=== PATIENT | female | born 1980 | race Caucasian/White ===

== ENCOUNTER 2016-09-13 19:19 | Inpatient (IN) | payer MEDICAID ==
--- NOTE | 2016-09-13 19:43 | EDM.PDOC ---
ED HPI GENERAL MEDICAL PROBLEM - General Chief Complaint: Abdominal Pain Stated Complaint: ABD PAIN Time Seen by Provider: 09/13/16 19:43 Source of Information: Reports: Patient History Limitations: Reports: No Limitations - History of Present Illness INITIAL COMMENTS - FREE TEXT/NARRATIVE: pt ate a salad at [facility] today nd had a carabou coffee. She felt a little unsettled at first and then she developed pain in the rt abdoman. She now has pain in rt upper abdoman and it goes to her shoulder blade. She still does have her GB, Onset: Today Duration: Hour(s): Location: Reports: Abdomen Associated Symptoms: Reports: Nausea/Vomiting abdominal pain Pain Score (Numeric/FACES): 10 - Related Data Allergies Allergy/AdvReac Type Severity Reaction Status Date / Time No Known Allergies Allergy Verified 09/13/16 19:47 Home Meds: Home Meds ALPRAZolam [Alprazolam] 0.5 mg PO TID PRN 09/13/16 [History] Citalopram [Citalopram Hbr] 40 mg PO DAILY 09/13/16 [History] ED ROS GENERAL - Review of Systems Review Of Systems: See Below Constitutional: Reports: No Symptoms HEENT: Reports: No Symptoms Respiratory: Reports: No Symptoms, Other (hurts rt upper abdoman when she takes a deep breath. ) Cardiovascular: Reports: No Symptoms Endocrine: Reports: No Symptoms GI/Abdominal: Reports: Abdominal Pain, Nausea : Reports: Incontinence Musculoskeletal: Reports: No Symptoms Skin: Reports: No Symptoms Neurological: Reports: No Symptoms ED EXAM, GI/ABD - Physical Exam Exam: See Below Text/Narrative:: pt felt well earlier in the day. She was at [facility] and she had the salad bar and a carabou coffee. She seemed a little unsettled at first and she now has pain at a 9 in the rt upper abdoman and some pain in the lower abdoman. She hurts wheb she takes a deep breath and the pain goes to her rt shoulder blade. Exam Limited By: No Limitations General Appearance: Alert, Moderate Distress, Other (pt is rating her pain a 9. ) Ears: Normal External Exam Nose: Normal Inspection Throat/Mouth: Normal Inspection Head: Atraumatic Neck: Normal Inspection Respiratory/Chest: No Respiratory Distress Cardiovascular: Regular Rate, Rhythm GI/Abdominal: Tenderness, Other ( pt is tender in the rt upper abdoman and she has pain in the rt shoulder. She has some pain in the lower abdoman. ) (Female) Exam: Deferred Rectal (Female) Exam: Deferred Back Exam: Normal Inspection Extremities: Normal Inspection Neurological: Alert, Oriented, Normal Cognition Course - Vital Signs Last Recorded V/S: Last Vital Signs Temp 36.9 C 09/13/16 22:10 Pulse 87 09/13/16 22:10 Resp 20 09/13/16 22:10 BP 133/79 09/13/16 22:10 Pulse Ox 99 09/13/16 22:10 - Orders/Labs/Meds Orders: Active Orders 24 hr Category Date Time Status Abdomen Ltd [US] Stat Exams 09/13/16 20:42 Ordered Abdomen Pelvis w Cont [CT] Stat Exams 09/13/16 22:12 Taken Abdomen Series w Chest 1V [CR] Urgent Exams 09/13/16 20:09 Taken Pelvis Non OB Ltd [US] Stat Exams 09/13/16 22:01 Ordered CANCER ANTIGEN,CA 125 [REF] Stat Lab 09/13/16 22:33 Received RED BLOOD CELLS LP [BBK] Stat Lab 09/13/16 23:16 Ordered TYPE AND SCREEN [BBK] Stat Lab 09/13/16 23:16 Ordered Iopamidol [Isovue-300 (61%)] Med 09/13/16 22:30 Active 100 ml IV . DIRECTED Sodium Chloride 0.9% [Normal Saline] 1,000 ml Med 09/13/16 20:15 Active IV ASDIRECTED Sodium Chloride 0.9% [Normal Saline] 1,000 ml Med 09/13/16 22:15 Active IV ASDIRECTED Sodium Chloride 0.9% [Normal Saline] 80 ml Med 09/13/16 22:30 Active IV ASDIRECTED Sodium Chloride 0.9% [Saline Flush] Med 09/13/16 22:18 Active 10 ml FLUSH ASDIRECTED PRN Medication Orders Sodium Chloride (Normal Saline) 1,000 mls @ 999 mls/hr IV ASDIRECTED JULIA Last Admin: 09/13/16 20:22 Dose: 999 mls/hr Sodium Chloride (Normal Saline) 1,000 mls @ 250 mls/hr IV ASDIRECTED JULIA Last Admin: 09/13/16 22:16 Dose: 250 mls/hr Sodium Chloride (Normal Saline) 80 mls @ 3 mls/sec IV ASDIRECTED JULIA Last Admin: 09/13/16 22:36 Dose: 3 mls/sec Iopamidol (Isovue-300 (61%)) 100 ml IV . DIRECTED JULIA Last Admin: 09/13/16 22:36 Dose: 100 ml Sodium Chloride (Saline Flush) 10 ml FLUSH ASDIRECTED PRN PRN Reason: Keep Vein Open Labs: Laboratory Tests 09/13/16 09/13/16 09/13/16 Range/Units 19:39 19:39 19:39 WBC 16.1 H (4.5-11.0) K/uL RBC 3.77 (3.30-5.50) M/uL Hgb 11.7 L (12.0-15.0) g/dL Hct 34.9 L (36.0-48.0) % MCV 93 (80-98) fL MCH 31 (27-31) pg MCHC 34 (32-36) % Plt Count 239 (150-400) K/uL Neut % (Auto) 77 H (36-66) % Lymph % (Auto) 16 L (24-44) % [place] % (Auto) 6 (2-6) % Eos % (Auto) 1 L (2-4) % Baso % (Auto) 0 (0-1) % ESR (0-25) mm/hr Sodium 136 L (140-148) mmol/L Potassium 4.0 (3.6-5.2) mmol/L Chloride 101 (100-108) mmol/L Carbon Dioxide 27 (21-32) mmol/L Anion Gap 12.0 (5.0-14.0) mmol/L BUN 16 (7-18) mg/dL Creatinine 0.8 (0.6-1.0) mg/dL Est Cr Clr Drug Dosing 99.95 mL/min Estimated GFR (MDRD) > 60 (>60) Glucose 147 H (74-106) mg/dL Calcium 8.1 L (8.5-10.1) mg/dL Total Bilirubin 0.3 (0.2-1.0) mg/dL AST 19 (15-37) U/L ALT 23 (12-78) U/L Alkaline Phosphatase 77 (46-116) U/L C-Reactive Protein 0.17 (0.0-0.3) mg/dL Total Protein 6.6 (6.4-8.2) g/dL Albumin 3.9 (3.4-5.0) g/dL Globulin 2.7 (2.3-3.5) g/dL Albumin/Globulin Ratio 1.4 (1.2-2.2) Lipase (73-393) U/L HCG, Quant (0-6) mIU/mL Urine Color Urine Appearance Urine pH (4.5-8.0) Ur Specific Sasser (1.008-1.030) Urine Protein (NEGATIVE) mg/dL Urine Glucose (UA) (NEGATIVE) mg/dL Urine Ketones (NEGATIVE) mg/dL Urine Occult Blood (NEGATIVE) Urine Nitrite (NEGATIVE) Urine Bilirubin (NEGATIVE) Urine Urobilinogen (NORMAL) mg/dL Ur Leukocyte Esterase (NEGATIVE) Urine RBC (0-5) Urine WBC (0-5) Ur Epithelial Cells Amorphous Sediment Urine Bacteria Urine Mucus Urine HCG, Qual 09/13/16 09/13/16 09/13/16 Range/Units 19:55 20:06 20:16 WBC (4.5-11.0) K/uL RBC (3.30-5.50) M/uL Hgb (12.0-15.0) g/dL Hct (36.0-48.0) % MCV (80-98) fL MCH (27-31) pg MCHC (32-36) % Plt Count (150-400) K/uL Neut % (Auto) (36-66) % Lymph % (Auto) (24-44) % [place] % (Auto) (2-6) % Eos % (Auto) (2-4) % Baso % (Auto) (0-1) % ESR (0-25) mm/hr Sodium (140-148) mmol/L Potassium (3.6-5.2) mmol/L Chloride (100-108) mmol/L Carbon Dioxide (21-32) mmol/L Anion Gap (5.0-14.0) mmol/L BUN (7-18) mg/dL Creatinine (0.6-1.0) mg/dL Est Cr Clr Drug Dosing mL/min Estimated GFR (MDRD) (>60) Glucose (74-106) mg/dL Calcium (8.5-10.1) mg/dL Total Bilirubin (0.2-1.0) mg/dL AST (15-37) U/L ALT (12-78) U/L Alkaline Phosphatase (46-116) U/L C-Reactive Protein (0.0-0.3) mg/dL Total Protein (6.4-8.2) g/dL Albumin (3.4-5.0) g/dL Globulin (2.3-3.5) g/dL Albumin/Globulin Ratio (1.2-2.2) Lipase 114 (73-393) U/L HCG, Quant (0-6) mIU/mL Urine Color Yellow Urine Appearance Clear Urine pH 5.0 (4.5-8.0) Ur Specific Sasser 1.020 (1.008-1.030) Urine Protein Negative (NEGATIVE) mg/dL Urine Glucose (UA) Normal (NEGATIVE) mg/dL Urine Ketones Negative (NEGATIVE) mg/dL Urine Occult Blood Negative (NEGATIVE) Urine Nitrite Negative (NEGATIVE) Urine Bilirubin Negative (NEGATIVE) Urine Urobilinogen Normal (NORMAL) mg/dL Ur Leukocyte Esterase Negative (NEGATIVE) Urine RBC 0-5 (0-5) Urine WBC 0-5 (0-5) Ur Epithelial Cells Rare Amorphous Sediment Few Urine Bacteria Not seen Urine Mucus Moderate Urine HCG, Qual Negative 09/13/16 09/13/16 Range/Units 22:00 22:20 WBC (4.5-11.0) K/uL RBC (3.30-5.50) M/uL Hgb (12.0-15.0) g/dL Hct (36.0-48.0) % MCV (80-98) fL MCH (27-31) pg MCHC (32-36) % Plt Count (150-400) K/uL Neut % (Auto) (36-66) % Lymph % (Auto) (24-44) % [place] % (Auto) (2-6) % Eos % (Auto) (2-4) % Baso % (Auto) (0-1) % ESR 11 (0-25) mm/hr Sodium (140-148) mmol/L Potassium (3.6-5.2) mmol/L Chloride (100-108) mmol/L Carbon Dioxide (21-32) mmol/L Anion Gap (5.0-14.0) mmol/L BUN (7-18) mg/dL Creatinine (0.6-1.0) mg/dL Est Cr Clr Drug Dosing mL/min Estimated GFR (MDRD) (>60) Glucose (74-106) mg/dL Calcium (8.5-10.1) mg/dL Total Bilirubin (0.2-1.0) mg/dL AST (15-37) U/L ALT (12-78) U/L Alkaline Phosphatase (46-116) U/L C-Reactive Protein (0.0-0.3) mg/dL Total Protein (6.4-8.2) g/dL Albumin (3.4-5.0) g/dL Globulin (2.3-3.5) g/dL Albumin/Globulin Ratio (1.2-2.2) Lipase (73-393) U/L HCG, Quant 0 (0-6) mIU/mL Urine Color Urine Appearance Urine pH (4.5-8.0) Ur Specific Sasser (1.008-1.030) Urine Protein (NEGATIVE) mg/dL Urine Glucose (UA) (NEGATIVE) mg/dL Urine Ketones (NEGATIVE) mg/dL Urine Occult Blood (NEGATIVE) Urine Nitrite (NEGATIVE) Urine Bilirubin (NEGATIVE) Urine Urobilinogen (NORMAL) mg/dL Ur Leukocyte Esterase (NEGATIVE) Urine RBC (0-5) Urine WBC (0-5) Ur Epithelial Cells Amorphous Sediment Urine Bacteria Urine Mucus Urine HCG, Qual Meds: Medications Generic Name Dose Route Start Last Admin Trade Name Freq PRN Reason Stop Dose Admin Sodium Chloride 1,000 mls @ 999 mls/hr 09/13/16 20:15 09/13/16 20:22 Normal Saline IV 999 mls/hr ASDIRECTED JULIA Administration Sodium Chloride 1,000 mls @ 250 mls/hr 09/13/16 22:15 09/13/16 22:16 Normal Saline IV 250 mls/hr ASDIRECTED JULIA Administration Sodium Chloride 80 mls @ 3 mls/sec 09/13/16 22:30 09/13/16 22:36 Normal Saline IV 3 mls/sec ASDIRECTED JULIA Administration Iopamidol 100 ml 09/13/16 22:30 09/13/16 22:36 Isovue-300 (61%) IV 100 ml . DIRECTED JULIA Administration Sodium Chloride 10 ml 09/13/16 22:18 Saline Flush FLUSH ASDIRECTED PRN Keep Vein Open Discontinued Medications Generic Name Dose Route Start Last Admin Trade Name Salbador PRN Reason Stop Dose Admin Hydromorphone HCl 0.5 mg 09/13/16 20:06 09/13/16 20:24 Dilaudid IVPUSH 09/13/16 20:07 0.5 mg ONETIME ONE Administration Hydromorphone HCl 0.5 mg 09/13/16 21:04 09/13/16 21:12 Dilaudid IVPUSH 09/13/16 21:05 0.5 mg ONETIME ONE Administration Hydromorphone HCl 1 mg 09/13/16 21:59 09/13/16 22:02 Dilaudid IVPUSH 09/13/16 22:00 1 mg ONETIME ONE Administration Hydromorphone HCl Confirm 09/13/16 22:00 09/13/16 22:07 Dilaudid Administered 09/13/16 22:01 Not Given Dose 1 mg .ROUTE .STK-MED ONE Hydromorphone HCl 1 mg 09/13/16 23:17 Dilaudid IVPUSH 09/13/16 23:18 ONETIME ONE Lorazepam 0.5 mg 09/13/16 22:00 09/13/16 22:07 Ativan IVPUSH 09/13/16 22:01 0.5 mg ONETIME ONE Administration Ondansetron HCl 4 mg 09/13/16 21:04 09/13/16 21:10 Zofran IVPUSH 09/13/16 21:05 4 mg ONETIME ONE Administration - Re-Assessments/Exams Free Text/Narrative Re-Assessment/Exam: 09/13/16 20:15 pt has mild elevation in the wbc at 16,000. Her lipase is normal, Her liver enzymes are normal. 09/13/16 23:18 a us was done on the gb area which was neg except there was some free fluid in the abdoman. The tech was ask to do a pelvic us which revealed a collection of fluid in the pelvis and a density which looked like a clot that was oraganized. Her hg is border line low. Her sed rate is normal. Her liver enzymes were normal. Acat scan of the abdoman showed alot of blood in the abdoman. Dr Presley was consulted. Departure - Departure Time of Disposition: 23:22 Disposition: Admitted As Inpatient 68 Condition: fair Clinical Impression: Hemoperitoneum - Discharge Information Forms: ED Department Discharge Care Plan Goals: admit to Dr Presley - My Orders Last 24 Hours: My Active Orders 09/13/16 20:09 Abdomen Series w Chest 1V [CR] Urgent 09/13/16 20:15 Sodium Chloride 0.9% [Normal Saline] 1,000 ml IV ASDIRECTED 09/13/16 20:42 Abdomen Ltd [US] Stat 09/13/16 22:01 Pelvis Non OB Ltd [US] Stat 09/13/16 22:12 Abdomen Pelvis w Cont [CT] Stat 09/13/16 22:15 Sodium Chloride 0.9% [Normal Saline] 1,000 ml IV ASDIRECTED 09/13/16 22:18 Sodium Chloride 0.9% [Saline Flush] 10 ml FLUSH ASDIRECTED PRN 09/13/16 22:30 Iopamidol [Isovue-300 (61%)] 100 ml IV . DIRECTED Sodium Chloride 0.9% [Normal Saline] 80 ml IV ASDIRECTED 09/13/16 22:33 CANCER ANTIGEN,CA 125 [REF] Stat 09/13/16 23:16 RED BLOOD CELLS LP [BBK] Stat TYPE AND SCREEN [BBK] Stat - Assessment/Plan Last 24 Hours: My Active Orders 09/13/16 20:09 Abdomen Series w Chest 1V [CR] Urgent 09/13/16 20:15 Sodium Chloride 0.9% [Normal Saline] 1,000 ml IV ASDIRECTED 09/13/16 20:42 Abdomen Ltd [US] Stat 09/13/16 22:01 Pelvis Non OB Ltd [US] Stat 09/13/16 22:12 Abdomen Pelvis w Cont [CT] Stat 09/13/16 22:15 Sodium Chloride 0.9% [Normal Saline] 1,000 ml IV ASDIRECTED 09/13/16 22:18 Sodium Chloride 0.9% [Saline Flush] 10 ml FLUSH ASDIRECTED PRN 09/13/16 22:30 Iopamidol [Isovue-300 (61%)] 100 ml IV . DIRECTED Sodium Chloride 0.9% [Normal Saline] 80 ml IV ASDIRECTED 09/13/16 22:33 CANCER ANTIGEN,CA 125 [REF] Stat 09/13/16 23:16 RED BLOOD CELLS LP [BBK] Stat TYPE AND SCREEN [BBK] Stat
[2016-09-13] MEDS ORDERED: HYDROmorphone 0.5 MG/0.5 ML Syringe IVPUSH ONE ×2 (20:06→21:04)
[2016-09-13] MEDS ORDERED: Sodium Chloride 0.9% 1,000 ML IV SCH ×2 (20:15→22:15)
[2016-09-13] MEDS ORDERED: Ondansetron 4 MG/2 ML SDV IVPUSH ONE (21:04)
[2016-09-13] MEDS ORDERED: HYDROmorphone 1 MG/ML Syringe IVPUSH ONE ×2 (21:59→23:17)
[2016-09-13] MEDS ORDERED: LORazepam 2 MG/ML MDV IVPUSH ONE (22:00)
[2016-09-13] MEDS ORDERED: HYDROmorphone 1 MG/ML Syringe ONE (22:00)
[2016-09-13] MEDS ORDERED: Sodium Chloride 0.9% 10 ML Syringe FLUSH PRN (22:18)
[2016-09-13] MEDS ORDERED: Iopamidol 612 MG/ML 100 ML Bottle IV SCH (22:30)
[2016-09-13] MEDS ORDERED: Sodium Chloride 0.9% 80 ML IV SCH (22:30)
[2016-09-14] MEDS ORDERED: Neostigmine Methylsulfate 1 MG/ML 5 ML Syringe ONE (00:03)
[2016-09-14] MEDS ORDERED: Dexamethasone 4 MG/ML SDV ONE (00:03)
[2016-09-14] MEDS ORDERED: Bupivacaine 0.5%/EPINEPHrine 1:200,000 50 ML MDV ONE (00:03)
[2016-09-14] MEDS ORDERED: Ondansetron 4 MG/2 ML SDV ONE ×2 (00:03→01:52)
[2016-09-14] MEDS ORDERED: Rocuronium 50 MG/5 ML Vial ONE (00:03)
[2016-09-14] MEDS ORDERED: Propofol 200 MG/20 ML SDV ONE (00:03)
[2016-09-14] MEDS ORDERED: Lidocaine 1% 50 ML MDV ONE (00:03)
[2016-09-14] MEDS ORDERED: fentaNYL 250 MCG/5 ML SDV ONE (00:04)
[2016-09-14] MEDS ORDERED: fentaNYL 100 MCG/2 ML SDV ONE (00:56)
[2016-09-14] MEDS ORDERED: HYDROmorphone/Normal Saline 15 MG/30 ML PCA IV ONE (00:59)
[2016-09-14] MEDS ORDERED: HYDROmorphone/Normal Saline 15 MG/30 ML PCA IV PRN (01:00)
[2016-09-14] MEDS ORDERED: Naloxone 0.4 MG/ML SDV IV PRN (01:00)
[2016-09-14] MEDS ORDERED: ALPRAZolam 0.5 MG Tab PO PRN (01:49)
[2016-09-14] MEDS ORDERED: Ondansetron 4 MG/2 ML SDV IVPUSH PRN (01:53)
[2016-09-14] MEDS: D5 1/2 NS w/ 20 mEq/L KCl 1,000 ML IV SCH ×3 (02:56→21:06)
[2016-09-14] MEDS ORDERED: Lactated Ringers 500 ML IV SCH (07:15)
--- NOTE | 2016-09-14 09:22 | PCM.SURGPN ---
- General Info Date of Service: 09/14/16 Date of Surgery/Procedure: 09/14/16 POD#: 0 Post-Op Diagnosis: Hemoperitoneum, right ovarian bleeding cyst. Functional Status: Reports: pain controlled (Still has pain), tolerating diet, urinating (Hannah) - Review of Systems General: Reports: No Symptoms HEENT: Reports: no symptoms Pulmonary: Reports: no symptoms Cardiovascular: Reports: No Symptoms Gastrointestinal: Reports: Abdominal pain (Much better than it was. ) Genitourinary: Reports: no symptoms Musculoskeletal: Reports: no symptoms Skin: Reports: no symptoms Neurological: Reports: No Symptoms Psychiatric: Reports: no symptoms - Patient Data Vitals - most recent: Last Vital Signs Temp 97.9 F 09/14/16 08:02 Pulse 65 09/14/16 08:02 Resp 18 09/14/16 08:02 BP 85/53 L 09/14/16 08:02 Pulse Ox 99 09/14/16 08:02 Weight - most recent: 178 lb 8 oz I&O - last 24 hours: Intake & Output 09/13/16 09/14/16 09/14/16 22:59 06:59 14:59 Intake Total 1000 508 500 Output Total 700 Balance 1000 -192 500 Lab Results last 24 hrs: Laboratory Results - last 24 hr 09/13/16 09/13/16 09/13/16 Range/Units 19:39 19:39 19:39 WBC 16.1 H (4.5-11.0) K/uL RBC 3.77 (3.30-5.50) M/uL Hgb 11.7 L (12.0-15.0) g/dL Hct 34.9 L (36.0-48.0) % MCV 93 (80-98) fL MCH 31 (27-31) pg MCHC 34 (32-36) % Plt Count 239 (150-400) K/uL Neut % (Auto) 77 H (36-66) % Lymph % (Auto) 16 L (24-44) % [place] % (Auto) 6 (2-6) % Eos % (Auto) 1 L (2-4) % Baso % (Auto) 0 (0-1) % ESR (0-25) mm/hr Sodium 136 L (140-148) mmol/L Potassium 4.0 (3.6-5.2) mmol/L Chloride 101 (100-108) mmol/L Carbon Dioxide 27 (21-32) mmol/L Anion Gap 12.0 (5.0-14.0) mmol/L BUN 16 (7-18) mg/dL Creatinine 0.8 (0.6-1.0) mg/dL Est Cr Clr Drug Dosing 99.95 mL/min Estimated GFR (MDRD) > 60 (>60) Glucose 147 H (74-106) mg/dL Calcium 8.1 L (8.5-10.1) mg/dL Total Bilirubin 0.3 (0.2-1.0) mg/dL AST 19 (15-37) U/L ALT 23 (12-78) U/L Alkaline Phosphatase 77 (46-116) U/L C-Reactive Protein 0.17 (0.0-0.3) mg/dL Total Protein 6.6 (6.4-8.2) g/dL Albumin 3.9 (3.4-5.0) g/dL Globulin 2.7 (2.3-3.5) g/dL Albumin/Globulin Ratio 1.4 (1.2-2.2) Lipase (73-393) U/L HCG, Quant (0-6) mIU/mL Urine Color Urine Appearance Urine pH (4.5-8.0) Ur Specific Downs (1.008-1.030) Urine Protein (NEGATIVE) mg/dL Urine Glucose (UA) (NEGATIVE) mg/dL Urine Ketones (NEGATIVE) mg/dL Urine Occult Blood (NEGATIVE) Urine Nitrite (NEGATIVE) Urine Bilirubin (NEGATIVE) Urine Urobilinogen (NORMAL) mg/dL Ur Leukocyte Esterase (NEGATIVE) Urine RBC (0-5) Urine WBC (0-5) Ur Epithelial Cells Amorphous Sediment Urine Bacteria Urine Mucus Urine HCG, Qual Blood Type Gel Antibody Screen Crossmatch 09/13/16 09/13/16 09/13/16 Range/Units 19:55 20:06 20:16 WBC (4.5-11.0) K/uL RBC (3.30-5.50) M/uL Hgb (12.0-15.0) g/dL Hct (36.0-48.0) % MCV (80-98) fL MCH (27-31) pg MCHC (32-36) % Plt Count (150-400) K/uL Neut % (Auto) (36-66) % Lymph % (Auto) (24-44) % [place] % (Auto) (2-6) % Eos % (Auto) (2-4) % Baso % (Auto) (0-1) % ESR (0-25) mm/hr Sodium (140-148) mmol/L Potassium (3.6-5.2) mmol/L Chloride (100-108) mmol/L Carbon Dioxide (21-32) mmol/L Anion Gap (5.0-14.0) mmol/L BUN (7-18) mg/dL Creatinine (0.6-1.0) mg/dL Est Cr Clr Drug Dosing mL/min Estimated GFR (MDRD) (>60) Glucose (74-106) mg/dL Calcium (8.5-10.1) mg/dL Total Bilirubin (0.2-1.0) mg/dL AST (15-37) U/L ALT (12-78) U/L Alkaline Phosphatase (46-116) U/L C-Reactive Protein (0.0-0.3) mg/dL Total Protein (6.4-8.2) g/dL Albumin (3.4-5.0) g/dL Globulin (2.3-3.5) g/dL Albumin/Globulin Ratio (1.2-2.2) Lipase 114 (73-393) U/L HCG, Quant (0-6) mIU/mL Urine Color Yellow Urine Appearance Clear Urine pH 5.0 (4.5-8.0) Ur Specific Downs 1.020 (1.008-1.030) Urine Protein Negative (NEGATIVE) mg/dL Urine Glucose (UA) Normal (NEGATIVE) mg/dL Urine Ketones Negative (NEGATIVE) mg/dL Urine Occult Blood Negative (NEGATIVE) Urine Nitrite Negative (NEGATIVE) Urine Bilirubin Negative (NEGATIVE) Urine Urobilinogen Normal (NORMAL) mg/dL Ur Leukocyte Esterase Negative (NEGATIVE) Urine RBC 0-5 (0-5) Urine WBC 0-5 (0-5) Ur Epithelial Cells Rare Amorphous Sediment Few Urine Bacteria Not seen Urine Mucus Moderate Urine HCG, Qual Negative Blood Type Gel Antibody Screen Crossmatch 09/13/16 09/13/16 09/13/16 Range/Units 22:00 22:20 23:24 WBC (4.5-11.0) K/uL RBC (3.30-5.50) M/uL Hgb 9.9 L (12.0-15.0) g/dL Hct 29.0 L (36.0-48.0) % MCV (80-98) fL MCH (27-31) pg MCHC (32-36) % Plt Count (150-400) K/uL Neut % (Auto) (36-66) % Lymph % (Auto) (24-44) % [place] % (Auto) (2-6) % Eos % (Auto) (2-4) % Baso % (Auto) (0-1) % ESR 11 (0-25) mm/hr Sodium (140-148) mmol/L Potassium (3.6-5.2) mmol/L Chloride (100-108) mmol/L Carbon Dioxide (21-32) mmol/L Anion Gap (5.0-14.0) mmol/L BUN (7-18) mg/dL Creatinine (0.6-1.0) mg/dL Est Cr Clr Drug Dosing mL/min Estimated GFR (MDRD) (>60) Glucose (74-106) mg/dL Calcium (8.5-10.1) mg/dL Total Bilirubin (0.2-1.0) mg/dL AST (15-37) U/L ALT (12-78) U/L Alkaline Phosphatase (46-116) U/L C-Reactive Protein (0.0-0.3) mg/dL Total Protein (6.4-8.2) g/dL Albumin (3.4-5.0) g/dL Globulin (2.3-3.5) g/dL Albumin/Globulin Ratio (1.2-2.2) Lipase (73-393) U/L HCG, Quant 0 (0-6) mIU/mL Urine Color Urine Appearance Urine pH (4.5-8.0) Ur Specific Downs (1.008-1.030) Urine Protein (NEGATIVE) mg/dL Urine Glucose (UA) (NEGATIVE) mg/dL Urine Ketones (NEGATIVE) mg/dL Urine Occult Blood (NEGATIVE) Urine Nitrite (NEGATIVE) Urine Bilirubin (NEGATIVE) Urine Urobilinogen (NORMAL) mg/dL Ur Leukocyte Esterase (NEGATIVE) Urine RBC (0-5) Urine WBC (0-5) Ur Epithelial Cells Amorphous Sediment Urine Bacteria Urine Mucus Urine HCG, Qual Blood Type Gel Antibody Screen Crossmatch 09/13/16 09/14/16 09/14/16 Range/Units 23:25 01:53 08:23 WBC 13.2 H 11.5 H (4.5-11.0) K/uL RBC 3.08 L 3.05 L (3.30-5.50) M/uL Hgb 9.5 L 9.3 L (12.0-15.0) g/dL Hct 29.1 L 28.8 L (36.0-48.0) % MCV 95 94 (80-98) fL MCH 31 31 (27-31) pg MCHC 33 32 (32-36) % Plt Count 186 193 (150-400) K/uL Neut % (Auto) (36-66) % Lymph % (Auto) (24-44) % [place] % (Auto) (2-6) % Eos % (Auto) (2-4) % Baso % (Auto) (0-1) % ESR (0-25) mm/hr Sodium (140-148) mmol/L Potassium (3.6-5.2) mmol/L Chloride (100-108) mmol/L Carbon Dioxide (21-32) mmol/L Anion Gap (5.0-14.0) mmol/L BUN (7-18) mg/dL Creatinine (0.6-1.0) mg/dL Est Cr Clr Drug Dosing mL/min Estimated GFR (MDRD) (>60) Glucose (74-106) mg/dL Calcium (8.5-10.1) mg/dL Total Bilirubin (0.2-1.0) mg/dL AST (15-37) U/L ALT (12-78) U/L Alkaline Phosphatase (46-116) U/L C-Reactive Protein (0.0-0.3) mg/dL Total Protein (6.4-8.2) g/dL Albumin (3.4-5.0) g/dL Globulin (2.3-3.5) g/dL Albumin/Globulin Ratio (1.2-2.2) Lipase (73-393) U/L HCG, Quant (0-6) mIU/mL Urine Color Urine Appearance Urine pH (4.5-8.0) Ur Specific Downs (1.008-1.030) Urine Protein (NEGATIVE) mg/dL Urine Glucose (UA) (NEGATIVE) mg/dL Urine Ketones (NEGATIVE) mg/dL Urine Occult Blood (NEGATIVE) Urine Nitrite (NEGATIVE) Urine Bilirubin (NEGATIVE) Urine Urobilinogen (NORMAL) mg/dL Ur Leukocyte Esterase (NEGATIVE) Urine RBC (0-5) Urine WBC (0-5) Ur Epithelial Cells Amorphous Sediment Urine Bacteria Urine Mucus Urine HCG, Qual Blood Type AB POSITIVE Gel Antibody Screen Negative Crossmatch See Detail 09/14/16 Range/Units 08:23 WBC (4.5-11.0) K/uL RBC (3.30-5.50) M/uL Hgb (12.0-15.0) g/dL Hct (36.0-48.0) % MCV (80-98) fL MCH (27-31) pg MCHC (32-36) % Plt Count (150-400) K/uL Neut % (Auto) (36-66) % Lymph % (Auto) (24-44) % [place] % (Auto) (2-6) % Eos % (Auto) (2-4) % Baso % (Auto) (0-1) % ESR (0-25) mm/hr Sodium 139 L (140-148) mmol/L Potassium 4.4 (3.6-5.2) mmol/L Chloride 106 (100-108) mmol/L Carbon Dioxide 29 (21-32) mmol/L Anion Gap 8.4 (5.0-14.0) mmol/L BUN 9 (7-18) mg/dL Creatinine 0.7 (0.6-1.0) mg/dL Est Cr Clr Drug Dosing 114.69 mL/min Estimated GFR (MDRD) > 60 (>60) Glucose 143 H (74-106) mg/dL Calcium 7.7 L (8.5-10.1) mg/dL Total Bilirubin (0.2-1.0) mg/dL AST (15-37) U/L ALT (12-78) U/L Alkaline Phosphatase (46-116) U/L C-Reactive Protein (0.0-0.3) mg/dL Total Protein (6.4-8.2) g/dL Albumin (3.4-5.0) g/dL Globulin (2.3-3.5) g/dL Albumin/Globulin Ratio (1.2-2.2) Lipase (73-393) U/L HCG, Quant (0-6) mIU/mL Urine Color Urine Appearance Urine pH (4.5-8.0) Ur Specific Downs (1.008-1.030) Urine Protein (NEGATIVE) mg/dL Urine Glucose (UA) (NEGATIVE) mg/dL Urine Ketones (NEGATIVE) mg/dL Urine Occult Blood (NEGATIVE) Urine Nitrite (NEGATIVE) Urine Bilirubin (NEGATIVE) Urine Urobilinogen (NORMAL) mg/dL Ur Leukocyte Esterase (NEGATIVE) Urine RBC (0-5) Urine WBC (0-5) Ur Epithelial Cells Amorphous Sediment Urine Bacteria Urine Mucus Urine HCG, Qual Blood Type Gel Antibody Screen Crossmatch Med Orders - Current: Current Medications Hydrocodone Bitart/Acetaminophen ([place] 325-5 Mg) 1 - 2 tab PO Q4H PRN PRN Reason: Abdominal Pain Alprazolam (Xanax) 0.5 mg PO TID PRN PRN Reason: Anxiety Citalopram Hydrobromide (Celexa) 40 mg PO DAILY [facility] Hydromorphone HCl (Dilaudid Elementary Librarian 15 Mg In Ns 30 Ml) 0 mg IV ASDIRECTED PRN; Protocol PRN 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 DIRECTED [facility] Last Admin: 09/13/16 22:36 Dose: 100 ml Naloxone HCl (Narcan) 0.1 mg IV ASDIRECTED PRN PRN Reason: decreased respiratory rate Ondansetron HCl (Zofran) 4 mg IVPUSH Q6H PRN PRN Reason: Nausea/Vomiting Sodium Chloride (Saline Flush) 10 ml FLUSH ASDIRECTED PRN PRN Reason: Keep Vein Open Discontinued Medications Bupivacaine HCl/Epinephrine Bitart (Marcaine 0.5%/Epinephrine 1:200,000) Confirm Administered Dose 50 ml .ROUTE .STK-MED ONE Stop: 09/14/16 00:04 Last Admin: 09/14/16 01:10 Dose: 10 ml Dexamethasone (Dexamethasone) Confirm Administered Dose 4 mg .ROUTE .STK-MED ONE Stop: 09/14/16 00:04 Fentanyl (Sublimaze) Confirm Administered Dose 250 mcg .ROUTE .STK-MED ONE Stop: 09/14/16 00:05 Fentanyl (Sublimaze) Confirm Administered Dose 100 mcg .ROUTE .STK-MED ONE Stop: 09/14/16 00:57 Glycopyrrolate () Confirm Administered Dose 1 mg .ROUTE .STK-MED ONE Stop: 09/14/16 00:04 Hydromorphone HCl (Dilaudid) 0.5 mg IVPUSH ONETIME ONE Stop: 09/13/16 20:07 Last Admin: 09/13/16 20:24 Dose: 0.5 mg Hydromorphone HCl (Dilaudid) 0.5 mg IVPUSH ONETIME ONE Stop: 09/13/16 21:05 Last Admin: 09/13/16 21:12 Dose: 0.5 mg Hydromorphone HCl (Dilaudid) 1 mg IVPUSH ONETIME ONE Stop: 09/13/16 22:00 Last Admin: 09/13/16 22:02 Dose: 1 mg Hydromorphone HCl (Dilaudid) Confirm Administered Dose 1 mg .ROUTE .STK-MED ONE Stop: 09/13/16 22:01 Last Admin: 09/13/16 22:07 Dose: Not Given Hydromorphone HCl (Dilaudid) 1 mg IVPUSH ONETIME ONE Stop: 09/13/16 23:18 Last Admin: 09/13/16 23:43 Dose: 1 mg Hydromorphone HCl (Dilaudid Elementary Librarian 15 Mg In Ns 30 Ml) Confirm Administered Dose 15 mg IV .STK-MED ONE Stop: 09/14/16 01:00 Last Admin: 09/14/16 01:54 Dose: Not Given Sodium Chloride (Normal Saline) 1,000 mls @ 999 mls/hr IV ASDIRECTED [facility]ULIA Last Admin: 09/13/16 20:22 Dose: 999 mls/hr Sodium Chloride (Normal Saline) 1,000 mls @ 250 mls/hr IV ASDIRECTED [facility] Last Admin: 09/13/16 22:16 Dose: 250 mls/hr Sodium Chloride (Normal Saline) 80 mls @ 3 mls/sec IV ASDIRECTED [facility] Last Admin: 09/13/16 22:36 Dose: 3 mls/sec Lactated Ringer's (Ringers, Lactated) 1,000 ml IRR .STK-MED ONE Stop: 09/14/16 01:01 Last Admin: 09/14/16 01:00 Dose: 1,000 ml Lidocaine HCl (Xylocaine 1%) Confirm Administered Dose 50 ml .ROUTE .STK-MED ONE Stop: 09/14/16 00:04 Last Admin: 09/14/16 01:10 Dose: 10 ml Lorazepam (Ativan) 0.5 mg IVPUSH ONETIME ONE Stop: 09/13/16 22:01 Last Admin: 09/13/16 22:07 Dose: 0.5 mg Neostigmine Methylsulfate (Neostigmine) Confirm Administered Dose 5 mg .ROUTE .STK-MED ONE Stop: 09/14/16 00:04 Ondansetron HCl (Zofran) 4 mg IVPUSH ONETIME ONE Stop: 09/13/16 21:05 Last Admin: 09/13/16 21:10 Dose: 4 mg Ondansetron HCl (Zofran) Confirm Administered Dose 4 mg .ROUTE .STK-MED ONE Stop: 09/14/16 00:04 Ondansetron HCl (Zofran) Confirm Administered Dose 4 mg .ROUTE .STK-MED ONE Stop: 09/14/16 01:53 Last Admin: 09/14/16 01:53 Dose: 4 mg Propofol (Diprivan 20 Ml) Confirm Administered Dose 200 mg .ROUTE .STK-MED ONE Stop: 09/14/16 00:04 Rocuronium [place] (Zemuron) Confirm Administered Dose 50 mg .ROUTE .STK-MED ONE Stop: 09/14/16 00:04 - Exam Wound/Incisions: healing well, no drainage Quality Assessment: urine catheter General: alert, oriented, cooperative, no acute distress Lungs: Clear to auscultation, Normal respiratory effort Cardiovascular: Regular Rate, Regular Rhythm Abdomen: bowel sounds present (Hypoactive), soft, no distension Extremities: no edema Skin: warm, dry, intact Neurological: no new focal deficit, normal speech Psy/Mental Status: alert, normal affect, normal mood - Problem List & Annotations (1) Hemoperitoneum SNOMED Code(s): 167642973 Code(s): K66.1 - HEMOPERITONEUM Status: Acute Current Visit: Yes - Problem List Review Problem List Initiated/Reviewed/Updated: Yes - My Orders Last 24 Hours: Active Orders 24 hr Category Date Time Status Patient Status [ADT] Routine ADT 09/14/16 01:50 Active Ambulate [RC] ASDIRECTED Care 09/14/16 01:50 Active DC Hannah Catheter [Urinary Catheter Removal] [RC] Per Care 09/14/16 09:14 Ordered Unit Routine Intake and Output [RC] Q12H Care 09/14/16 01:52 Active Notify Provider Intake and Out [RC] PRN Care 09/14/16 01:54 Active Notify Provider Vital Signs [RC] PRN Care 09/14/16 01:52 Active Oxygen Therapy [RC] PRN Care 09/14/16 01:53 Active Pulse Oximetry [RC] CONTINUOUS Care 09/14/16 01:55 Active RT Incentive Spirometry [RC] ASDIRECTED Care 09/14/16 01:50 Active Up With Assistance [RC] ASDIRECTED Care 09/14/16 01:50 Active Up ad Mellissa [RC] ASDIRECTED Care 09/14/16 01:50 Active Up to Chair [RC] ASDIRECTED Care 09/14/16 01:50 Active Vital Signs [RC] PER UNIT ROUTINE Care 09/14/16 01:50 Active Respiratory Care Assess and Treatment [CONS] Routine Cons 09/14/16 01:53 Active Advance Diet Instructions [DIET] Diet 09/14/16 Breakfast Active Regular Diet [DIET] Diet 09/14/16 Lunch Ordered Abdomen Ltd [US] Stat Exams 09/13/16 20:42 Taken Abdomen Pelvis w Cont [CT] Stat Exams 09/13/16 22:12 Taken Abdomen Series w Chest 1V [CR] Urgent Exams 09/13/16 20:09 Taken Pelvis Non OB Ltd [US] Stat Exams 09/13/16 22:01 Taken CANCER ANTIGEN,CA 125 [REF] Stat Lab 09/13/16 22:33 Received CBC WITH AUTO DIFF [HEME] Routine Lab 09/14/16 20:00 Ordered PATIENT RETYPE [BBK] Stat Lab 09/13/16 23:25 Results RED BLOOD CELLS LP [BBK] Stat Lab 09/13/16 23:25 Results TYPE AND SCREEN [BBK] Stat Lab 09/13/16 23:25 Results ALPRAZolam [Xanax] Med 09/14/16 01:49 Active 0.5 mg PO TID PRN Acetaminophen/HYDROcodone [[place] 325-5 MG] Med 09/14/16 09:15 Ordered 1 - 2 tab PO Q4H PRN Citalopram [Celexa] Med 09/14/16 09:00 Active 40 mg PO DAILY D5 1/2 NS w/ 20 mEq/L KCl 1,000 ml Med 09/14/16 02:00 Active IV ASDIRECTED Docusate Sodium [Colace] Med 09/14/16 09:30 Ordered 100 mg PO BID HYDROmorphone/Normal Saline [Dilaudid INTELLIGENCE ENGINEER 15 MG in NS Med 09/14/16 01:00 Hold 30 ML] 0 mg IV ASDIRECTED PRN Iopamidol [Isovue-300 (61%)] Med 09/13/16 22:30 Active 100 ml IV . DIRECTED Lactated Ringers [Ringers, Lactated] 500 ml Med 09/14/16 07:15 Active IV .BOLUS Naloxone [Narcan] Med 09/14/16 01:00 Active 0.1 mg IV ASDIRECTED PRN Ondansetron [Zofran] Med 09/14/16 01:53 Active 4 mg IVPUSH Q6H PRN Sodium Chloride 0.9% [Saline Flush] Med 09/13/16 22:18 Active 10 ml FLUSH ASDIRECTED PRN Resuscitation Status Routine Resus Stat 09/14/16 01:50 Ordered Medication Orders Hydrocodone Bitart/Acetaminophen ([place] 325-5 Mg) 1 - 2 tab PO Q4H PRN PRN Reason: Abdominal Pain Alprazolam (Xanax) 0.5 mg PO TID PRN PRN Reason: Anxiety Citalopram Hydrobromide (Celexa) 40 mg PO DAILY [facility] Hydromorphone HCl (Dilaudid Elementary Librarian 15 Mg In Ns 30 Ml) 0 mg IV ASDIRECTED PRN; Protocol PRN 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 DIRECTED [facility] Last Admin: 09/13/16 22:36 Dose: 100 ml Naloxone HCl (Narcan) 0.1 mg IV ASDIRECTED PRN PRN Reason: decreased respiratory rate Ondansetron HCl (Zofran) 4 mg IVPUSH Q6H PRN PRN Reason: Nausea/Vomiting Sodium Chloride (Saline Flush) 10 ml FLUSH ASDIRECTED PRN PRN Reason: Keep Vein Open - Assessment Assessment (Free Text/Narrative):: Doing well. Tolerating a clear liquid diet and would like regular food. Craves a cigarette. Good UOP. BP runs low. This seems to be asymptomatic. - Plan Plan (Free Text/Narrative):: Advance diet, oral pain medication, stool softener, D/C Hannah.
[2016-09-14] MEDS: Citalopram 20 MG Tab PO SCH (09:44)
[2016-09-14] MEDS: Acetaminophen/HYDROcodone 325-5 MG Tab PO PRN ×4 (09:44→22:17)
[2016-09-14] MEDS: Ibuprofen 600 MG Tab PO PRN ×2 (11:20→17:29)
[2016-09-14] MEDS: hydrOXYzine HCl 50 MG/ML SDV IM PRN ×2 (14:54→19:57)
[2016-09-14] MEDS: Docusate Sodium 100 MG Cap PO SCH ×2 (14:55→21:09)
[2016-09-14] MEDS: Iron PS Complex & Vit B12/FA Cap PO SCH (17:29)
[2016-09-15] MEDS: Ibuprofen 600 MG Tab PO PRN (00:51)
[2016-09-15] MEDS: Acetaminophen/HYDROcodone 325-5 MG Tab PO PRN ×2 (02:07→05:38)
[2016-09-15] MEDS: D5 1/2 NS w/ 20 mEq/L KCl 1,000 ML IV SCH ×2 (05:39→15:30)
[2016-09-15] MEDS: hydrOXYzine HCl 50 MG/ML SDV IM PRN (05:58)
[2016-09-15] MEDS ORDERED: HYDROmorphone 1 MG/ML Syringe ONE ×5 (07:40→21:11)
[2016-09-15] MEDS: HYDROmorphone 1 MG/ML Syringe IVPUSH PRN ×5 (07:44→21:16)
[2016-09-15] MEDS: Docusate Sodium 100 MG Cap PO SCH ×2 (09:09→21:14)
[2016-09-15] MEDS: Citalopram 20 MG Tab PO SCH (09:10)
[2016-09-15] MEDS: Iron PS Complex & Vit B12/FA Cap PO SCH ×2 (09:10→17:53)
[2016-09-15] MEDS ORDERED: Acetaminophen/oxyCODONE 325-10 MG Tab ONE (09:54)
[2016-09-15] MEDS: Acetaminophen/oxyCODONE 325-5 MG Tab PO PRN ×4 (10:03→22:14)
[2016-09-15] MEDS ORDERED: Acetaminophen/oxyCODONE 325-5 MG Tab ONE ×4 (10:03→21:12)
--- NOTE | 2016-09-15 10:35 | PCM.SURGPN ---
- General Info Date of Service: 09/15/16 Date of Surgery/Procedure: 09/14/16 POD#: 1 Post-Op Diagnosis: Hemoperitoneum, bleeding right ovarian cyst Functional Status: Reports: tolerating diet, ambulating, urinating, incentive spirometry. Denies: pain controlled (Pain in right lower quadrant and right side laparoscopic port site. ) - Review of Systems General: Reports: Appetite (Good appetite ) HEENT: Reports: no symptoms Pulmonary: Reports: no symptoms Cardiovascular: Reports: No Symptoms Gastrointestinal: Reports: Abdominal pain Genitourinary: Reports: no symptoms (Large UOP) Musculoskeletal: Reports: no symptoms Skin: Reports: no symptoms Neurological: Reports: No Symptoms Psychiatric: Reports: no symptoms - Patient Data Vitals - most recent: Last Vital Signs Temp 98.5 F 09/15/16 07:19 Pulse 72 09/15/16 07:19 Resp 19 09/15/16 07:19 BP 86/60 L 09/15/16 07:19 Pulse Ox 97 09/15/16 07:19 Weight - most recent: 178 lb 8 oz I&O - last 24 hours: Intake & Output 09/14/16 09/15/16 09/15/16 22:59 06:59 14:59 Intake Total 1455 600 120 Output Total 1625 450 Balance -170 150 120 Lab Results last 24 hrs: Laboratory Results - last 24 hr 09/14/16 09/15/16 Range/Units 20:00 04:00 WBC 17.0 H (4.5-11.0) K/uL RBC 2.55 L (3.30-5.50) M/uL Hgb 8.0 L 7.5 L (12.0-15.0) g/dL Hct 24.4 L (36.0-48.0) % MCV 96 (80-98) fL MCH 31 (27-31) pg MCHC 33 (32-36) % Plt Count 163 (150-400) K/uL Neut % (Auto) 80 H (36-66) % Lymph % (Auto) 11 L (24-44) % [place] % (Auto) 8 H (2-6) % Eos % (Auto) 0 L (2-4) % Baso % (Auto) 0 (0-1) % Med Orders - Current: Current Medications Alprazolam (Xanax) 0.5 mg PO TID PRN PRN Reason: Anxiety Last Admin: 09/14/16 11:24 Dose: 0.5 mg Citalopram Hydrobromide (Celexa) 40 mg PO DAILY [facility] Last Admin: 09/15/16 09:10 Dose: 40 mg Docusate Sodium (Colace) 100 mg PO BID [facility] Last Admin: 09/15/16 09:09 Dose: 100 mg Hydromorphone HCl (Dilaudid Pharmacy Benefit Manager 15 Mg In Ns 30 Ml) 0 mg IV ASDIRECTED PRN; Protocol 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 DIRECTED [facility] Last Admin: 09/13/16 22:36 Dose: 100 ml Naloxone HCl (Narcan) 0.1 mg IV ASDIRECTED PRN PRN Reason: decreased respiratory rate Ondansetron HCl (Zofran) 4 mg IVPUSH Q6H PRN PRN Reason: Nausea/Vomiting Last Admin: 09/14/16 11:24 Dose: 4 mg Oxycodone/Acetaminophen (Percocet 325-5 Mg) 1 - 2 tab PO Q4H PRN PRN Reason: Pain Last Admin: 09/15/16 10:03 Dose: 2 tab Polysaccharide Iron Complex (Ferrex 150 Forte) 1 cap PO BIDMEALS [facility] Last Admin: 09/15/16 09:10 Dose: 1 cap Sodium Chloride (Saline Flush) 10 ml FLUSH ASDIRECTED PRN PRN Reason: Keep Vein Open Discontinued Medications Hydrocodone Bitart/Acetaminophen ([place] 325-5 Mg) 1 - 2 tab PO Q4H PRN PRN Reason: Abdominal Pain Last Admin: 09/15/16 05:38 Dose: 2 tab Bupivacaine HCl/Epinephrine Bitart ([place] 0.5%/Epinephrine 1:200,000) Confirm Administered Dose 50 ml .ROUTE .STK-MED ONE Stop: 09/14/16 00:04 Last Admin: 09/14/16 01:10 Dose: 10 ml Dexamethasone (Dexamethasone) Confirm Administered Dose 4 mg .ROUTE .STK-MED ONE Stop: 09/14/16 00:04 Fentanyl (Sublimaze) Confirm Administered Dose 250 mcg .ROUTE .STK-MED ONE Stop: 09/14/16 00:05 Fentanyl (Sublimaze) Confirm Administered Dose 100 mcg .ROUTE .STK-MED ONE Stop: 09/14/16 00:57 Glycopyrrolate () Confirm Administered Dose 1 mg .ROUTE .STK-MED ONE Stop: 09/14/16 00:04 Hydromorphone HCl (Dilaudid) 0.5 mg IVPUSH ONETIME ONE Stop: 09/13/16 20:07 Last Admin: 09/13/16 20:24 Dose: 0.5 mg Hydromorphone HCl (Dilaudid) 0.5 mg IVPUSH ONETIME ONE Stop: 09/13/16 21:05 Last Admin: 09/13/16 21:12 Dose: 0.5 mg Hydromorphone HCl (Dilaudid) 1 mg IVPUSH ONETIME ONE Stop: 09/13/16 22:00 Last Admin: 09/13/16 22:02 Dose: 1 mg Hydromorphone HCl (Dilaudid) Confirm Administered Dose 1 mg .ROUTE .STK-MED ONE Stop: 09/13/16 22:01 Last Admin: 09/13/16 22:07 Dose: Not Given Hydromorphone HCl (Dilaudid) 1 mg IVPUSH ONETIME ONE Stop: 09/13/16 23:18 Last Admin: 09/13/16 23:43 Dose: 1 mg Hydromorphone HCl (Dilaudid Pharmacy Benefit Manager 15 Mg In Ns 30 Ml) Confirm Administered Dose 15 mg IV .STK-MED ONE Stop: 09/14/16 01:00 Last Admin: 09/14/16 01:54 Dose: Not Given Sodium Chloride (Normal Saline) 1,000 mls @ 999 mls/hr IV ASDIRECTED [facility] Last Admin: 09/13/16 20:22 Dose: 999 mls/hr Sodium Chloride (Normal Saline) 1,000 mls @ 250 mls/hr IV ASDIRECTED [facility] Last Admin: 09/13/16 22:16 Dose: 250 mls/hr Sodium Chloride (Normal Saline) 80 mls @ 3 mls/sec IV ASDIRECTED [facility] Last Admin: 09/13/16 22:36 Dose: 3 mls/sec Ibuprofen (Motrin) 600 mg PO Q6H PRN PRN Reason: Pain Last Admin: 09/15/16 00:51 Dose: 600 mg Lactated Ringer's (Ringers, Lactated) 1,000 ml IRR .STK-MED ONE Stop: 09/14/16 01:01 Last Admin: 09/14/16 01:00 Dose: 1,000 ml Lidocaine HCl (Xylocaine 1%) Confirm Administered Dose 50 ml .ROUTE .STK-MED ONE Stop: 09/14/16 00:04 Last Admin: 09/14/16 01:10 Dose: 10 ml Lorazepam (Ativan) 0.5 mg IVPUSH ONETIME ONE Stop: 09/13/16 22:01 Last Admin: 09/13/16 22:07 Dose: 0.5 mg Neostigmine Methylsulfate (Neostigmine) Confirm Administered Dose 5 mg .ROUTE .STK-MED ONE Stop: 09/14/16 00:04 Ondansetron HCl (Zofran) 4 mg IVPUSH ONETIME ONE Stop: 09/13/16 21:05 Last Admin: 09/13/16 21:10 Dose: 4 mg Ondansetron HCl (Zofran) Confirm Administered Dose 4 mg .ROUTE .STK-MED ONE Stop: 09/14/16 00:04 Ondansetron HCl (Zofran) Confirm Administered Dose 4 mg .ROUTE .STK-MED ONE Stop: 09/14/16 01:53 Last Admin: 09/14/16 01:53 Dose: 4 mg Propofol (Diprivan 20 Ml) Confirm Administered Dose 200 mg .ROUTE .STK-MED ONE Stop: 09/14/16 00:04 Rocuronium [place] (Zemuron) Confirm Administered Dose 50 mg .ROUTE .STK-MED ONE Stop: 09/14/16 00:04 - Exam Wound/Incisions: healing well, no drainage General: alert, oriented, cooperative, no acute distress Lungs: Clear to auscultation, Normal respiratory effort Cardiovascular: Regular Rate, Regular Rhythm Abdomen: bowel sounds present, soft, no tenderness, no distension Extremities: no edema Skin: warm, dry, intact Neurological: no new focal deficit Psy/Mental Status: alert, normal affect, normal mood - Problem List & Annotations (1) Hemoperitoneum SNOMED Code(s): 732638129 Code(s): K66.1 - HEMOPERITONEUM Status: Acute Current Visit: Yes - Problem List Review Problem List Initiated/Reviewed/Updated: Yes - My Orders Last 24 Hours: Active Orders 24 hr Category Date Time Status Admission Status [Patient Status] [ADT] Routine ADT 09/15/16 09:54 Active Communication Order [RC] Click To Edit Care 09/15/16 04:00 Active Regular Diet [DIET] Diet 09/14/16 Lunch Active CBC W/O DIFF,HEMOGRAM [HEME] Routine Lab 09/15/16 12:00 Ordered INR,PT,PROTHROMBIN TIME [COAG] Routine Lab 09/15/16 12:00 Ordered PTT,PARTIAL THROMBOPLSTIN TIME [COAG] Routine Lab 09/15/16 12:00 Ordered Acetaminophen/oxyCODONE [Percocet 325-5 MG] Med 09/15/16 07:23 Active 1 - 2 tab PO Q4H PRN Docusate Sodium [Colace] Med 09/14/16 10:00 Active 100 mg PO BID HYDROmorphone [Dilaudid] Med 09/15/16 07:36 Active 1 mg IVPUSH Q1H PRN Iron PS Complex & Vit B12/FA [Ferrex 150 Forte] Med 09/14/16 17:00 Active 1 cap PO BIDMEALS hydrOXYzine HCl [Vistaril] Med 09/14/16 14:23 Active 50 - 75 mg IM Q4H PRN Medication Orders Alprazolam (Xanax) 0.5 mg PO TID PRN PRN Reason: Anxiety Last Admin: 09/14/16 11:24 Dose: 0.5 mg Citalopram Hydrobromide (Celexa) 40 mg PO DAILY [facility] Last Admin: 09/15/16 09:10 Dose: 40 mg Admin: 09/14/16 09:44 Dose: 40 mg Docusate Sodium (Colace) 100 mg PO BID [facility] Last Admin: 09/15/16 09:09 Dose: 100 mg Admin: 09/14/16 21:09 Dose: 100 mg Admin: 09/14/16 14:55 Dose: 100 mg Hydromorphone HCl (Dilaudid Pharmacy Benefit Manager 15 Mg In Ns 30 Ml) 0 mg IV ASDIRECTED PRN; Protocol PRN 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 Last Admin: 09/14/16 01:46 Dose: 15 mg Hydromorphone HCl (Dilaudid) 1 mg IVPUSH Q1H PRN PRN Reason: Pain Last Admin: 09/15/16 09:10 Dose: 1 mg Admin: 09/15/16 07:44 Dose: 1 mg Hydroxyzine HCl (Vistaril) 50 - 75 mg IM Q4H PRN PRN Reason: Pain Last Admin: 09/15/16 05:58 Dose: 50 mg Admin: 09/14/16 19:57 Dose: 50 mg Admin: 09/14/16 14:54 Dose: 75 mg Potassium Chloride/Dextrose/Sod Cl (D5 1/2 Ns W/ 20 Meq/L Kcl) 1,000 mls @ 125 mls/hr IV ASDIRECTED [facility] Last Admin: 09/15/16 05:39 Dose: 125 mls/hr Infusion: 09/15/16 05:06 Dose: 125 mls/hr Admin: 09/14/16 21:06 Dose: 125 mls/hr Infusion: 09/14/16 20:43 Dose: 125 mls/hr Admin: 09/14/16 12:43 Dose: 125 mls/hr Infusion: 09/14/16 10:56 Dose: 125 mls/hr Admin: 09/14/16 02:56 Dose: 125 mls/hr Lactated Ringer's (Ringers, Lactated) 500 mls @ 500 mls/hr IV .BOLUS [facility] Last Admin: 09/14/16 07:10 Dose: 500 mls/hr Iopamidol (Isovue-300 (61%)) 100 ml IV . DIRECTED [facility] Last Admin: 09/13/16 22:36 Dose: 100 ml Naloxone HCl (Narcan) 0.1 mg IV ASDIRECTED PRN PRN Reason: decreased respiratory rate Ondansetron HCl (Zofran) 4 mg IVPUSH Q6H PRN PRN Reason: Nausea/Vomiting Last Admin: 09/14/16 11:24 Dose: 4 mg Oxycodone/Acetaminophen (Percocet 325-5 Mg) 1 - 2 tab PO Q4H PRN PRN Reason: Pain Last Admin: 09/15/16 10:03 Dose: 2 tab Polysaccharide Iron Complex (Ferrex 150 Forte) 1 cap PO BIDMEALS [facility] Last Admin: 09/15/16 09:10 Dose: 1 cap Admin: 09/14/16 17:29 Dose: 1 cap Sodium Chloride (Saline Flush) 10 ml FLUSH ASDIRECTED PRN PRN Reason: Keep Vein Open - Assessment Assessment (Free Text/Narrative):: She has large UOP and her Hgb is slowly going down to 7.5 this morning (from 8.0 last night). Pain is an issue with modifying her pain medication. - Plan Plan (Free Text/Narrative):: Check her Hgb again at noon. She may need a blood transfusion.
[2016-09-15] MEDS ORDERED: Magnesium Hydroxide 400 MG/5 ML Susp 30 ML Cup PO PRN (14:21)
[2016-09-15] MEDS ORDERED: D5 1/2 NS w/ 20 mEq/L KCl 1,000 ML ONE (15:27)
[2016-09-16] MEDS: HYDROmorphone 1 MG/ML Syringe IVPUSH PRN ×2 (01:20→05:47)
[2016-09-16] MEDS ORDERED: HYDROmorphone 1 MG/ML Syringe ONE ×2 (01:20→05:41)
[2016-09-16] MEDS ORDERED: Acetaminophen/oxyCODONE 325-5 MG Tab ONE ×2 (01:20→04:41)
[2016-09-16] MEDS: Acetaminophen/oxyCODONE 325-5 MG Tab PO PRN ×3 (02:19→09:43)
[2016-09-16] MEDS ORDERED: D5 1/2 NS w/ 20 mEq/L KCl 1,000 ML ONE (04:41)
[2016-09-16] MEDS: D5 1/2 NS w/ 20 mEq/L KCl 1,000 ML IV SCH (04:43)
[2016-09-16] MEDS: Citalopram 20 MG Tab PO SCH (08:15)
[2016-09-16] MEDS: Iron PS Complex & Vit B12/FA Cap PO SCH (08:15)
[2016-09-16] MEDS: Docusate Sodium 100 MG Cap PO SCH (08:15)
--- NOTE | 2016-09-16 08:24 | CR ---
Abdomen Series w Chest 1V HISTORY: No Clinical Info FINDINGS: Heart size within normal limits. Pulmonary vasculature within normal limits. No evidence f or focal consolidation or cardiopulmonary process. Large fecal residual. Nonobstructive bowel gas pattern.
[2016-09-16] MEDS ORDERED: Bisacodyl 10 MG Supp RECTAL ONE (10:01)
[2016-09-16 10:41] VITALS: BP 91/55
--- NOTE | 2016-09-16 12:50 | PCM.DCSUM1 ---
Discharge Summary - Hospital Course Free Text/Narrative:: This 36 year old white female noted sudden onset of severe abdominal pain with radiation to her back and shoulders on September 13, 2016. She presented to the ER with CT of abdomen and pelvis and abdominal ultrasound performed. This showed fluid in her abdomen and a complex right pelvic mass consistent with a blood clot. She was taken to the OR where she was found to have a bleeding right ovarian cyst and hemoperitoneum. She underwent right ovarian cystectomy and evacuation of her hemoperitoneum. Her Hgb fell from about 11 to 7.5. At the time of discharge it is increasing at 7.8. We had trouble getting good pain relief. She is now doing well, had a bowel movement, is eating well, and is discharged to home in good condition. Pathology is still pending. We will send her with Percocet 5/325 1-2 po q 4 hours prn pain # 30 and iron. Brief History: See above narrative. - Discharge Data Discharge Date: 09/16/16 Discharge Disposition: Home, Self-Care 01 Condition: Stable - Discharge Diagnosis/Problem(s) (1) Hemoperitoneum SNOMED Code(s): 715539144 ICD Code: K66.1 - HEMOPERITONEUM Status: Acute Current Visit: Yes - Patient Summary/Data Hospital Course: See above narrative. - Patient Instructions Diet: Usual Diet as Tolerated Activity: As Tolerated Driving, Other: Do not drive while taking narcotic pain medication. Showering/Bathing: May Shower, No Tub Bathing/Swimming Notify Provider of: Fever, Increased Pain, Swelling and Redness, Drainage, Nausea and/or Vomiting - Discharge Plan Prescriptions/Med Rec: Acetaminophen/oxyCODONE [Percocet 325-5 MG] 1 - 2 tab PO Q4H PRN #30 tablet PRN Reason: Abdominal Pain Iron PS Complex & Vit B12/FA [Ferrex 150 Forte] 1 cap PO BIDMEALS #60 cap Home Medications: Home Meds ALPRAZolam [Alprazolam] 0.5 mg PO TID PRN 09/13/16 [History] Citalopram [Citalopram HBr] 40 mg PO DAILY 09/13/16 [History] Acetaminophen/oxyCODONE [Percocet 325-5 MG] 1 - 2 tab PO Q4H PRN #30 tablet [Rx] Docusate Sodium [Colace] 100 mg PO BID cap 09/16/16 [Rx] Iron PS Complex & Vit B12/FA [Ferrex 150 Forte] 1 cap PO BIDMEALS #60 cap [Rx] Forms: ED Department Discharge Referrals: Sina Shaikh MD [Physician] - El Castellon MD [Primary Care Provider] - - Discharge Summary/Plan Comment DC Time >30 min.: Yes Discharge Summary/Plan Comment: See above narrative. We will obtain a Hgb in the clinic in two days. She goes home on iron. - Patient Data Vitals - Most Recent: Last Vital Signs Temp 98.4 F 09/16/16 10:39 Pulse 74 09/16/16 10:39 Resp 18 09/16/16 10:39 BP 91/55 L 09/16/16 10:39 Pulse Ox 100 09/16/16 10:39 Weight - Most Recent: 178 lb 8 oz I&O - Last 24 hours: Intake & Output 09/15/16 09/16/16 09/16/16 22:59 06:59 14:59 Intake Total 1790 2179 360 Output Total 600 Balance 1190 2179 360 Med Orders - Current: Current Medications Alprazolam (Xanax) 0.5 mg PO TID PRN PRN Reason: Anxiety Last Admin: 09/14/16 11:24 Dose: 0.5 mg Citalopram Hydrobromide (Celexa) 40 mg PO DAILY [facility] Last Admin: 09/16/16 08:15 Dose: 40 mg Docusate Sodium (Colace) 100 mg PO BID [facility] Last Admin: 09/16/16 08:15 Dose: 100 mg Hydromorphone HCl (Dilaudid Drilling Inspector 15 Mg In Ns 30 Ml) 0 mg IV ASDIRECTED PRN; Protocol 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 Last Admin: 09/14/16 01:46 Dose: 15 mg Hydromorphone HCl (Dilaudid) 1 mg IVPUSH Q1H PRN PRN Reason: Pain Last Admin: 09/16/16 05:47 Dose: 1 mg Hydroxyzine HCl (Vistaril) 50 - 75 mg IM Q4H PRN PRN Reason: Pain Last Admin: 09/15/16 05:58 Dose: 50 mg Lactated Ringer's (Ringers, Lactated) 500 mls @ 500 mls/hr IV .BOLUS [facility] Last Admin: 09/14/16 07:10 Dose: 500 mls/hr Potassium Chloride/Dextrose/Sod Cl (D5 1/2 Ns W/ 20 Meq/L Kcl) 1,000 mls @ 75 mls/hr IV ASDIRECTED [facility] Last Admin: 09/16/16 04:43 Dose: 75 mls/hr Magnesium Hydroxide (Milk Of Magnesia) 30 ml PO DAILY PRN PRN Reason: Constipation Last Admin: 09/15/16 14:39 Dose: 30 ml Naloxone HCl (Narcan) 0.1 mg IV ASDIRECTED PRN PRN Reason: decreased respiratory rate Ondansetron HCl (Zofran) 4 mg IVPUSH Q6H PRN PRN Reason: Nausea/Vomiting Last Admin: 09/14/16 11:24 Dose: 4 mg Oxycodone/Acetaminophen (Percocet 325-5 Mg) 1 - 2 tab PO Q4H PRN PRN Reason: Pain Last Admin: 09/16/16 09:43 Dose: 2 tab Polysaccharide Iron Complex (Ferrex 150 Forte) 1 cap PO BIDMEALS [facility] Last Admin: 09/16/16 08:15 Dose: 1 cap Sodium Chloride (Saline Flush) 10 ml FLUSH ASDIRECTED PRN PRN Reason: Keep Vein Open Discontinued Medications Hydrocodone Bitart/Acetaminophen ([place] 325-5 Mg) 1 - 2 tab PO Q4H PRN PRN Reason: Abdominal Pain Last Admin: 09/15/16 05:38 Dose: 2 tab Bisacodyl (Dulcolax) 10 mg RECTAL ONETIME ONE Stop: 09/16/16 10:02 Last Admin: 09/16/16 10:20 Dose: 10 mg Bupivacaine HCl/Epinephrine Bitart ([place] 0.5%/Epinephrine 1:200,000) Confirm Administered Dose 50 ml .ROUTE .STK-MED ONE Stop: 09/14/16 00:04 Last Admin: 09/14/16 01:10 Dose: 10 ml Dexamethasone (Dexamethasone) Confirm Administered Dose 4 mg .ROUTE .STK-MED ONE Stop: 09/14/16 00:04 Fentanyl (Sublimaze) Confirm Administered Dose 250 mcg .ROUTE .STK-MED ONE Stop: 09/14/16 00:05 Fentanyl (Sublimaze) Confirm Administered Dose 100 mcg .ROUTE .STK-MED ONE Stop: 09/14/16 00:57 Glycopyrrolate () Confirm Administered Dose 1 mg .ROUTE .STK-MED ONE Stop: 09/14/16 00:04 Hydromorphone HCl (Dilaudid) 0.5 mg IVPUSH ONETIME ONE Stop: 09/13/16 20:07 Last Admin: 09/13/16 20:24 Dose: 0.5 mg Hydromorphone HCl (Dilaudid) 0.5 mg IVPUSH ONETIME ONE Stop: 09/13/16 21:05 Last Admin: 09/13/16 21:12 Dose: 0.5 mg Hydromorphone HCl (Dilaudid) 1 mg IVPUSH ONETIME ONE Stop: 09/13/16 22:00 Last Admin: 09/13/16 22:02 Dose: 1 mg Hydromorphone HCl (Dilaudid) Confirm Administered Dose 1 mg .ROUTE .ST-MED ONE Stop: 09/13/16 22:01 Last Admin: 09/13/16 22:07 Dose: Not Given Hydromorphone HCl (Dilaudid) 1 mg IVPUSH ONETIME ONE Stop: 09/13/16 23:18 Last Admin: 09/13/16 23:43 Dose: 1 mg Hydromorphone HCl (Dilaudid Drilling Inspector 15 Mg In Ns 30 Ml) Confirm Administered Dose 15 mg IV .ST-MED ONE Stop: 09/14/16 01:00 Last Admin: 09/14/16 01:54 Dose: Not Given Hydromorphone HCl (Dilaudid) Confirm Administered Dose 1 mg .ROUTE .ST-MED ONE Stop: 09/15/16 15:35 Last Admin: 09/15/16 15:36 Dose: Not Given Hydromorphone HCl (Dilaudid) Confirm Administered Dose 1 mg .ROUTE .STK-MED ONE Stop: 09/15/16 21:12 Last Admin: 09/15/16 21:53 Dose: Not Given Hydromorphone HCl (Dilaudid) Confirm Administered Dose 1 mg .ROUTE .STK-MED ONE Stop: 09/16/16 01:21 Last Admin: 09/16/16 02:21 Dose: Not Given Hydromorphone HCl (Dilaudid) Confirm Administered Dose 1 mg .ROUTE .[facility] ONE Stop: 09/16/16 05:42 Last Admin: 09/16/16 05:45 Dose: Not Given Hydromorphone HCl (Dilaudid) Confirm Administered Dose 1 mg .ROUTE .[facility] ONE Stop: 09/15/16 07:41 Hydromorphone HCl (Dilaudid) Confirm Administered Dose 1 mg .ROUTE .[facility] ONE Stop: 09/15/16 09:07 Hydromorphone HCl (Dilaudid) Confirm Administered Dose 1 mg .ROUTE .[facility] ONE Stop: 09/15/16 11:38 Sodium Chloride (Normal Saline) 1,000 mls @ 999 mls/hr IV ASDIRECTED [facility] Last Admin: 09/13/16 20:22 Dose: 999 mls/hr Sodium Chloride (Normal Saline) 1,000 mls @ 250 mls/hr IV ASDIRECTED [facility] Last Admin: 09/13/16 22:16 Dose: 250 mls/hr Sodium Chloride (Normal Saline) 80 mls @ 3 mls/sec IV ASDIRECTED [facility] Last Admin: 09/13/16 22:36 Dose: 3 mls/sec Potassium Chloride/Dextrose/Sod Cl (D5 1/2 Ns W/ 20 Meq/L Kcl) 1,000 mls @ 125 mls/hr IV ASDIRECTED [facility] Last Admin: 09/15/16 05:39 Dose: 125 mls/hr Potassium Chloride/Dextrose/Sod Cl (D5 1/2 Ns W/ 20 Meq/L Kcl) Confirm Administered Dose 1,000 mls @ as directed .ROUTE .[facility] ONE Stop: 09/15/16 15:28 Last Admin: 09/15/16 15:32 Dose: Not Given Potassium Chloride/Dextrose/Sod Cl (D5 1/2 Ns W/ 20 Meq/L Kcl) Confirm Administered Dose 1,000 mls @ as directed .ROUTE .[facility] ONE Stop: 09/16/16 04:42 Last Admin: 09/16/16 05:36 Dose: Not Given Ibuprofen (Motrin) 600 mg PO Q6H PRN PRN Reason: Pain Last Admin: 09/15/16 00:51 Dose: 600 mg Iopamidol (Isovue-300 (61%)) 100 ml IV . DIRECTED [facility] Last Admin: 09/13/16 22:36 Dose: 100 ml Lactated Ringer's (Ringers, Lactated) 1,000 ml IRR .STK-MED ONE Stop: 09/14/16 01:01 Last Admin: 09/14/16 01:00 Dose: 1,000 ml Lidocaine HCl (Xylocaine 1%) Confirm Administered Dose 50 ml .ROUTE .STK-MED ONE Stop: 09/14/16 00:04 Last Admin: 09/14/16 01:10 Dose: 10 ml Lorazepam (Ativan) 0.5 mg IVPUSH ONETIME ONE Stop: 09/13/16 22:01 Last Admin: 09/13/16 22:07 Dose: 0.5 mg Neostigmine Methylsulfate (Neostigmine) Confirm Administered Dose 5 mg .ROUTE .STK-MED ONE Stop: 09/14/16 00:04 Ondansetron HCl (Zofran) 4 mg IVPUSH ONETIME ONE Stop: 09/13/16 21:05 Last Admin: 09/13/16 21:10 Dose: 4 mg Ondansetron HCl (Zofran) Confirm Administered Dose 4 mg .ROUTE .STK-MED ONE Stop: 09/14/16 00:04 Ondansetron HCl (Zofran) Confirm Administered Dose 4 mg .ROUTE .STK-MED ONE Stop: 09/14/16 01:53 Last Admin: 09/14/16 01:53 Dose: 4 mg Oxycodone/Acetaminophen (Percocet 325-5 Mg) Confirm Administered Dose 2 tab .ROUTE .STK-MED ONE Stop: 09/15/16 14:03 Last Admin: 09/15/16 14:08 Dose: Not Given Oxycodone/Acetaminophen (Percocet 325-5 Mg) Confirm Administered Dose 2 tab .ROUTE .STK-MED ONE Stop: 09/15/16 17:52 Last Admin: 09/15/16 17:58 Dose: Not Given Oxycodone/Acetaminophen (Percocet 325-5 Mg) Confirm Administered Dose 2 tab .ROUTE .STK-MED ONE Stop: 09/15/16 21:13 Last Admin: 09/15/16 21:53 Dose: Not Given Oxycodone/Acetaminophen (Percocet 325-5 Mg) Confirm Administered Dose 2 tab .ROUTE .STK-MED ONE Stop: 09/16/16 01:21 Last Admin: 09/16/16 02:21 Dose: Not Given Oxycodone/Acetaminophen (Percocet 325-5 Mg) Confirm Administered Dose 2 tab .ROUTE .STK-MED ONE Stop: 09/16/16 04:42 Last Admin: 09/16/16 05:36 Dose: Not Given Oxycodone/Acetaminophen (Percocet 325-10 Mg) Confirm Administered Dose 2 tab .ROUTE .STK-MED ONE Stop: 09/15/16 09:55 Oxycodone/Acetaminophen (Percocet 325-5 Mg) Confirm Administered Dose 2 tab .ROUTE .STK-MED ONE Stop: 09/15/16 10:04 Propofol (Diprivan 20 Ml) Confirm Administered Dose 200 mg .ROUTE .STK-MED ONE Stop: 09/14/16 00:04 Rocuronium [place] (Zemuron) Confirm Administered Dose 50 mg .ROUTE .STK-MED ONE Stop: 09/14/16 00:04 *Q Meaningful Use (DIS) - VTE *Q VTE Criteria *Q: - Stroke *Q Stroke Criteria *Q: - AMI *Q AMI Criteria *Q:
--- NOTE | 2016-09-16 13:59 | OR ---
DATE OF PROCEDURE: 09/13/2016 PREOPERATIVE DIAGNOSES: Hemoperitoneum, abnormal left ovary. POSTOPERATIVE DIAGNOSES: Hemoperitoneum, abnormal left ovary appears to be a bleeding cyst. PROCEDURES: 1. Exploratory laparoscopy. 2. Evacuation of hemoperitoneum. 3. Right ovarian cystectomy. ANESTHESIA: General endotracheal. INDICATIONS: This 36-year-old white female yesterday noted sudden onset of severe abdominal pain. She presented to the emergency room. The pain involved her shoulders. She was worked up and found to have a hemoperitoneum. CAT scan and ultrasound is consistent with an abnormal right ovary. There is no evidence of other disease in the abdomen. She has had no prior abdominal surgery. She is taken to the operating room for an exploratory laparoscopy, probably a right oophorectomy, and evacuation of her hemoperitoneum. I counseled her for surgery including risks and alternatives, and she gave her informed consent to proceed. DESCRIPTION OF PROCEDURE: After adequate general endotracheal anesthesia was obtained, she was placed in low lithotomy. Her perineum and vagina were prepped, and then a Hannah catheter was placed. A speculum was placed and a uterine elevator was placed under direct vision. Her abdomen was then prepped and draped in the usual sterile fashion. Time-out was held. An infraumbilical semicircular incision was made. Under direct vision, a 12-mm port was introduced in the abdomen through this incision. The camera was introduced into the abdomen encountering hemoperitoneum. The abdomen was insufflated to a pressure of 15 mmHg with carbon dioxide. No evidence of intraabdominal injury was seen. Under direct vision, a 12-mm port was placed in the right lower quadrant. We evacuated some of the hemoperitoneum and we were able to visualize both ovaries. We saw a large ovary on the right, which appeared to have a cyst, which was bleeding. We then placed a 12-mm port in the left lower quadrant. The right ovary was elevated, and then divided with a stapler with a white load. The bleeding cystic structure was placed in a sample retrieval bag and elevated up through the anterior abdominal wall via the left lower quadrant port site. The left lower quadrant port was re-introduced back in the abdomen. We evacuated over 1,400 mL of blood. We then irrigated the abdomen and removed more blood. The total amount is not determinable. We cauterized the staple line of the ovary. It looked well. The fascial closure device was then used to place 0 Vicryl stitches in the right and left lower quadrant fascial defects. They were tied down. The infraumbilical port was removed with an interrupted stitch of 0 Vicryl used to close this fascial defect. Before tying this down, we evacuated as much CO2 from the abdomen as we could. Lidocaine 1% plain with 0.5% Marcaine with epinephrine was infiltrated about all incisions. Vicryl 4-0 using a subcuticular stitch was placed to approximate the skin incisions. Dermabond was applied. The uterine elevator was removed. She was placed supine. The anesthesia was reversed. She was extubated and brought to the recovery room in good condition. Sina Shaikh MD /[id number] MTDD
== END 2016-09-16 13:00 | disposition home or self-care (01) | DRG 742 ==
LOC: JP.ED 19:19 → JP.SDS 23:35 → JP.MS 09-14 01:50 → JP.SDS 09-15 09:54
PROVIDERS: ADMIT Surgery; ATTEND Surgery
PROC: 0UB07ZZ Excision of Right Ovary, Via Natural or Artificial Opening (ICD-10-PCS; principal; 2016-09-15)
PROC: 0W9G3ZZ Drainage of Peritoneal Cavity, Percutaneous Approach (ICD-10-PCS; 2016-09-15)
DX: N83.201 Unspecified ovarian cyst, right side (principal); K66.1 Hemoperitoneum
CPT/HCPCS: 36415; 74022; 74022-26; 74177; 76705; 76857; 80048; 80053; 81001; 81025; 83690; 84702; 85014; 85018; 85025; 85027; 85610; 85651; 85730; 86140; 86304; 86850; 86900; 86901; 86920; 86922; 88305; 96361; 96374; 96375; 96376; 99285-25; A9270-GY; J1100; J1170; J2060; J2405; J2704; J3010; J3410; J3480; J7030; J7040; J7120; Q9967

== ENCOUNTER 2016-09-23 18:12 | Emergency (ER) | payer MEDICAID ==
[2016-09-23] MEDS ORDERED: HYDROmorphone 0.5 MG/0.5 ML Syringe IVPUSH ONE (18:59)
[2016-09-23] MEDS ORDERED: Sodium Chloride 0.9% 1,000 ML IV SCH (19:00)
--- NOTE | 2016-09-23 19:05 | EDM.PDOC ---
ED HPI GENERAL MEDICAL PROBLEM - General Chief Complaint: Abdominal Pain Stated Complaint: ABDOMINAL PAIN ON THE RIGHT LOWER SIDE Time Seen by Provider: 09/23/16 19:05 Source of Information: Reports: Patient History Limitations: Reports: No Limitations - History of Present Illness INITIAL COMMENTS - FREE TEXT/NARRATIVE: pt arrived with a pain in the left side of the abdoman. She had surgery 9 days ago for ruptuted ovarian cyst with a large amount of bleeding in the abdoman. She was doing well and last nite she developed acute abdomanal pain. She has remained very uncomfortable all day today. Onset: Other ( started last nite. ) Duration: Hour(s):, Getting Worse Location: Reports: Abdomen Quality: Reports: Sharp, Stabbing Associated Symptoms: Reports: Other ( She feels like something is pushing out on the abdoman. ) Right Upper Abdomen Pain Score (Numeric/FACES): 8 - Related Data Allergies Allergy/AdvReac Type Severity Reaction Status Date / Time No Known Allergies Allergy Verified 09/23/16 19:00 Home Meds: Home Meds ALPRAZolam [Alprazolam] 0.5 mg PO TID PRN 09/13/16 [History] Citalopram [Citalopram HBr] 40 mg PO DAILY 09/13/16 [History] Docusate Sodium [Colace] 100 mg PO BID cap 09/16/16 [Rx] Iron PS Complex & Vit B12/FA [Ferrex 150 Forte] 1 cap PO BIDMEALS #60 cap [Rx] HYDROmorphone [Dilaudid] 4 mg PO Q4H PRN 09/23/16 [History] Past Medical History HEENT History: Reports: Impaired Vision Cardiovascular History: Reports: 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: Psychiatric History: Reports: Anxiety Dermatologic History: Reports: Other (See Below) Other Dermatologic History: Dermatitis - Infectious Disease History Infectious Disease History: Reports: Chicken Pox - Past Surgical History Dermatological Surgical History: Reports: None Social & Family History - Tobacco Use Smoking Status *Q: Current Every Day Smoker Years of Tobacco use: 16 Packs/Tins Daily: 0.5 Second Hand Smoke Exposure: Yes - Caffeine Use Caffeine Use: Reports: Soda - Recreational Drug Use Recreational Drug Use: No ED ROS GENERAL - Review of Systems Review Of Systems: See Below Constitutional: Reports: Weakness, Other ( very uncomfortable) HEENT: Reports: No Symptoms Respiratory: Reports: No Symptoms Cardiovascular: Reports: No Symptoms Endocrine: Reports: No Symptoms GI/Abdominal: Reports: Abdominal Pain, Other (history of recent surgery. ) : Reports: No Symptoms Musculoskeletal: Reports: No Symptoms Skin: Reports: No Symptoms ED EXAM, GI/ABD - Physical Exam Exam: See Below Text/Narrative:: pt arrived with pain in rt colon. She was uncomfortable. She has been very constipated. She has noit been vomiting. Her stools are starting to open up. She had a stool today and a stool yesterday which were very hard. Exam Limited By: No Limitations General Appearance: Alert, Anxious Eyes: Bilateral: Normal Appearance, EOMI Ears: Normal TMs Nose: Normal Inspection Throat/Mouth: Normal Inspection Head: Atraumatic Neck: Normal Inspection Respiratory/Chest: No Respiratory Distress Cardiovascular: Regular Rate, Rhythm GI/Abdominal: Other ( Pt is quite tender in the rt lower abdoman. She was concerned that her abdoman is pushing out. ) (Female) Exam: Deferred Rectal (Female) Exam: Deferred Back Exam: Normal Inspection Extremities: Normal Inspection Course - Vital Signs Last Recorded V/S: Last Vital Signs Temp 37.0 C 09/23/16 18:58 Pulse 96 09/23/16 18:58 Resp 20 09/23/16 18:58 BP 116/96 H 09/23/16 18:58 Pulse Ox 97 09/23/16 18:58 - Orders/Labs/Meds Orders: Active Orders 24 hr Category Date Time Status Abdomen Pelvis w Cont [CT] Stat Exams 09/23/16 19:12 Taken UA W/MICROSCOPIC [URIN] Urgent Lab 09/23/16 18:58 Uncollected Iopamidol [Isovue-300 (61%)] Med 09/23/16 19:29 Active 100 ml IV . DIRECTED PRN Magnesium Citrate [Citrate of Magnesia] Med 09/23/16 21:00 Once 296 ml PO ONETIME ONE Sodium Chloride 0.9% [Normal Saline] 1,000 ml Med 09/23/16 19:00 Active IV ASDIRECTED Sodium Chloride 0.9% [Normal Saline] 80 ml Med 09/23/16 19:30 Active IV ASDIRECTED Medication Orders Sodium Chloride (Normal Saline) 1,000 mls @ 500 mls/hr IV ASDIRECTED JULIA Last Admin: 09/23/16 19:23 Dose: 500 mls/hr Sodium Chloride (Normal Saline) 80 mls @ 3 mls/sec IV ASDIRECTED JULIA Last Admin: 09/23/16 19:47 Dose: 3 mls/sec Iopamidol (Isovue-300 (61%)) 100 ml IV . DIRECTED PRN PRN Reason: RADIOLOGY EXAM Stop: 09/24/16 19:30 Last Admin: 09/23/16 19:47 Dose: 100 ml Magnesium Citrate (Citrate Of Magnesia) 296 ml PO ONETIME ONE Stop: 09/23/16 21:01 Labs: Laboratory Tests 09/23/16 09/23/16 09/23/16 Range/Units 19:10 19:10 19:10 WBC 8.1 (4.5-11.0) K/uL RBC 3.38 (3.30-5.50) M/uL Hgb 10.3 L D (12.0-15.0) g/dL Hct 31.9 L (36.0-48.0) % MCV 94 (80-98) fL MCH 31 (27-31) pg MCHC 32 (32-36) % Plt Count 269 (150-400) K/uL Neut % (Auto) 60 (36-66) % Lymph % (Auto) 29 (24-44) % [place] % (Auto) 7 H (2-6) % Eos % (Auto) 3 (2-4) % Baso % (Auto) 1 (0-1) % Sodium 138 L (140-148) mmol/L Potassium 3.6 (3.6-5.2) mmol/L Chloride 103 (100-108) mmol/L Carbon Dioxide 29 (21-32) mmol/L Anion Gap 9.6 (5.0-14.0) mmol/L BUN 13 (7-18) mg/dL Creatinine 0.7 (0.6-1.0) mg/dL Est Cr Clr Drug Dosing 114.23 mL/min Estimated GFR (MDRD) > 60 (>60) Glucose 103 (74-106) mg/dL Calcium 8.1 L (8.5-10.1) mg/dL Total Bilirubin 0.3 (0.2-1.0) mg/dL AST 25 (15-37) U/L ALT 36 (12-78) U/L Alkaline Phosphatase 128 H (46-116) U/L C-Reactive Protein 0.55 H (0.0-0.3) mg/dL Total Protein 6.3 L (6.4-8.2) g/dL Albumin 3.3 L (3.4-5.0) g/dL Globulin 3.0 (2.3-3.5) g/dL Albumin/Globulin Ratio 1.1 L (1.2-2.2) Meds: Medications Generic Name Dose Route Start Last Admin Trade Name Freq PRN Reason Stop Dose Admin Sodium Chloride 1,000 mls @ 500 mls/hr 09/23/16 19:00 09/23/16 19:23 Normal Saline IV 500 mls/hr ASDIRECTED JULIA Administration Sodium Chloride 80 mls @ 3 mls/sec 09/23/16 19:30 09/23/16 19:47 Normal Saline IV 3 mls/sec ASDIRECTED JULIA Administration Iopamidol 100 ml 09/23/16 19:29 09/23/16 19:47 Isovue-300 (61%) IV 09/24/16 19:30 100 ml . DIRECTED PRN Administration RADIOLOGY EXAM Magnesium Citrate 296 ml 09/23/16 21:00 Citrate Of Magnesia PO 09/23/16 21:01 ONETIME ONE Discontinued Medications Generic Name Dose Route Start Last Admin Trade Name Freq PRN Reason Stop Dose Admin Hydromorphone HCl 0.5 mg 09/23/16 18:59 09/23/16 19:32 Dilaudid IVPUSH 09/23/16 19:00 0.5 mg ONETIME ONE Administration - Re-Assessments/Exams Free Text/Narrative Re-Assessment/Exam: 09/23/16 21:04 pt arrived with pain in rt lower abdoman., Her hg is 10.3. Her wbc is normal.A cat scan of the abdoman shows just a small amount of blood in the pelvis. The ovary looks good. The rt coln has alot of stool. Pt was given a bottle of mag citrate. Departure - Departure Time of Disposition: 21:06 Disposition: Home, Self-Care 01 Condition: fair Clinical Impression: Constipation, Anemia, Ovarian cyst - Discharge Information Forms: ED Department Discharge Care Plan Goals: push fluids, cut back on the narcotics if possible, cont stool softner, eat 4 prunes daily, get gummy fibers and use 2-3 daily. encourage ambulation - My Orders Last 24 Hours: My Active Orders 09/23/16 18:58 UA W/MICROSCOPIC [URIN] Urgent 09/23/16 19:00 Sodium Chloride 0.9% [Normal Saline] 1,000 ml IV ASDIRECTED 09/23/16 19:12 Abdomen Pelvis w Cont [CT] Stat 09/23/16 19:29 Iopamidol [Isovue-300 (61%)] 100 ml IV . DIRECTED PRN 09/23/16 19:30 Sodium Chloride 0.9% [Normal Saline] 80 ml IV ASDIRECTED 09/23/16 21:00 Magnesium Citrate [Citrate of Magnesia] 296 ml PO ONETIME ONE - Assessment/Plan Last 24 Hours: My Active Orders 09/23/16 18:58 UA W/MICROSCOPIC [URIN] Urgent 09/23/16 19:00 Sodium Chloride 0.9% [Normal Saline] 1,000 ml IV ASDIRECTED 09/23/16 19:12 Abdomen Pelvis w Cont [CT] Stat 09/23/16 19:29 Iopamidol [Isovue-300 (61%)] 100 ml IV . DIRECTED PRN 09/23/16 19:30 Sodium Chloride 0.9% [Normal Saline] 80 ml IV ASDIRECTED 09/23/16 21:00 Magnesium Citrate [Citrate of Magnesia] 296 ml PO ONETIME ONE
[2016-09-23] MEDS ORDERED: Iopamidol 612 MG/ML 100 ML Bottle IV PRN (19:29)
[2016-09-23] MEDS ORDERED: Sodium Chloride 0.9% 80 ML IV SCH (19:30)
[2016-09-23] MEDS ORDERED: Magnesium Citrate Solution 296 ML Bottle PO ONE (21:00)
[2016-09-23 21:23] VITALS: BP 124/64
== END 2016-09-23 21:24 | disposition home or self-care (01) ==
LOC: JP.ED 18:12
DX: K59.00 Constipation, unspecified (principal); D64.9 Anemia, unspecified; N83.209 Unspecified ovarian cyst, unspecified side; F41.9 Anxiety disorder, unspecified; F17.210 Nicotine dependence, cigarettes, uncomplicated; Z79.899 Other long term (current) drug therapy
CPT/HCPCS: 36415; 74177; 80053; 85025; 86140; 96361; 96374; 99285; A9270; J1170; J7030; J7040; Q9967

== ENCOUNTER 2016-09-29 19:12 | Emergency (ER) | payer MEDICAID ==
--- NOTE | 2016-09-29 19:58 | EDM.PDOC ---
[id number]: ABDOMINAL PAIN, SX 5-19 TO REMOVE OVARY Time Seen by Provider: 09/29/16 19:47 Source of Information: Reports: Patient History Limitations: Reports: No Limitations - History of Present Illness INITIAL COMMENTS - FREE TEXT/NARRATIVE: 36-year-old female who underwent a laparoscopic oophorectomy procedure 2 weeks ago was doing well but over the last 2 days has had increased localized pain under the incision in the right lower abdomen along with a mass like sensation or tenderness. She feels it is worse when she stands. She has no fevers or chills, no diffuse abdominal pain, bowels are moving. No trauma. Location: Reports: Abdomen Quality: Reports: Sharp Improves with: Reports: Other Worsens with: Reports: Other (Standing or palpating the area) Right abdominal pain Pain Score (Numeric/FACES): 5 - Related Data Allergies Allergy/AdvReac Type Severity Reaction Status Date / Time No Known Allergies Allergy Verified 09/29/16 19:39 Home Meds: Home Meds ALPRAZolam [Alprazolam] 0.5 mg PO TID PRN 09/13/16 [History] Citalopram [Citalopram HBr] 40 mg PO DAILY 09/13/16 [History] Docusate Sodium [Colace] 100 mg PO BID cap 09/16/16 [Rx] Iron PS Complex & Vit B12/FA [Ferrex 150 Forte] 1 cap PO BIDMEALS #60 cap [Rx] Past Medical History HEENT History: Reports: Impaired Vision 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 Female Surgical History: Reports: Other (See Below) Other Female Surgeries/Procedures: Partial right oophorectomy Dermatological Surgical History: Reports: None Social & Family History - Tobacco Use Smoking Status *Q: Current Every Day Smoker Years of Tobacco use: 20 Packs/Tins Daily: 0.5 Used Tobacco, but Quit: No Second Hand Smoke Exposure: Yes - Caffeine Use Caffeine Use: Reports: Coffee - Recreational Drug Use Recreational Drug Use: No ED ROS GENERAL - Review of Systems Review Of Systems: See Below Constitutional: Denies: Fever, Chills Respiratory: Denies: Shortness of Breath Cardiovascular: Denies: Chest Pain GI/Abdominal: Reports: Abdominal Pain Skin: Reports: No Symptoms Neurological: Reports: No Symptoms ED EXAM, GI/ABD - Physical Exam Exam: See Below Exam Limited By: No Limitations General Appearance: Alert, No Apparent Distress Respiratory/Chest: No Respiratory Distress, Lungs Clear GI/Abdominal: Normal Bowel Sounds, Other (She does have tenderness and slight firm fullness under the laparoscopic incision of the right lower quadrant that seems to be in the subcutaneous layer of the abdomen. It is mildly tender. It is nonfluctuant.) Course - Vital Signs Last Recorded V/S: Last Vital Signs Temp 98.7 F 09/29/16 19:37 Pulse 72 09/29/16 20:05 Resp 14 09/29/16 20:05 BP 107/63 09/29/16 20:05 Pulse Ox 97 09/29/16 20:05 - Re-Assessments/Exams Free Text/Narrative Re-Assessment/Exam: 09/29/16 20:03 Dr. Shaikh was called and we discussed the patient. She may have a small seroma or possibly a small hernia through the laparoscopic incision. She was given 6 additional Vicodin to use tonight and will recheck in the clinic with Dr. Shaikh tomorrow afternoon. Departure - Departure Time of Disposition: 20:14 Disposition: Home, Self-Care 01 Condition: good Clinical Impression: Abdominal pain Qualifiers: Abdominal location: right lower quadrant Qualified Code(s): R10.31 - Right lower quadrant pain - Discharge Information Instructions: Abdominal Pain, Adult, [id number] Referrals: El Castellon MD [Primary Care Provider] - Forms: ED Department Discharge Care Plan Goals: Use pain medications as prescribed and continue with ibuprofen. Call for a clinic appointment with Dr. Shaikh tomorrow afternoon within numbers provided. Return sooner if worsening or concerns.
[2016-09-29 20:13] VITALS: BP 107/63
== END 2016-09-29 20:15 | disposition home or self-care (01) ==
LOC: JP.ED 19:12
DX: R10.31 Right lower quadrant pain (principal); F41.9 Anxiety disorder, unspecified; F17.210 Nicotine dependence, cigarettes, uncomplicated; Z79.899 Other long term (current) drug therapy; Z90.721 Acquired absence of ovaries, unilateral
CPT/HCPCS: 99284

== ENCOUNTER 2018-01-08 08:27 | Inpatient (IN) | payer MEDICAID ==
[2018-01-08] MEDS ORDERED: Sodium Chloride 0.9% 10 ML Syringe FLUSH PRN (10:05)
[2018-01-08] MEDS ORDERED: Lactated Ringers 1,000 ML IV ONE (10:05)
[2018-01-08] MEDS ORDERED: Ondansetron 4 MG/2 ML SDV IV PRN (10:05)
[2018-01-08] MEDS ORDERED: fentaNYL 100 MCG/2 ML SDV IVPUSH PRN (10:05)
[2018-01-08] MEDS ORDERED: Acetaminophen 325 MG Tab PO PRN (10:05)
[2018-01-08] MEDS ORDERED: ePHEDrine 50 MG/ML SDV IVPUSH ONE (10:05)
[2018-01-08] MEDS ORDERED: Ropivacaine 100 ML ONE (10:18)
--- NOTE | 2018-01-08 10:21 | PCM.LDHP ---
L&D History of Present Illness - General Date of Service: 01/08/18 Admit Problem/Dx: Patient Status Order with Admit Dx/Problem 01/08/18 10:05 Patient Status [ADT] Routine Admission Diagnosis/Problem Admission Diagnosis/Problem - Related Data Allergies/Adverse Reactions: Allergies Allergy/AdvReac Type Severity Reaction Status Date / Time No Known Allergies Allergy Verified 09/29/16 19:39 Home Medications: Home Meds ALPRAZolam [Alprazolam] 0.5 mg PO TID PRN 09/13/16 [History] Citalopram [Citalopram HBr] 40 mg PO DAILY 09/13/16 [History] Iron PS Complex & Vit B12/FA [Ferrex 150 Forte] 1 cap PO BIDMEALS #60 cap [Rx] Past Medical History HEENT History: Reports: Impaired Vision Cardiovascular History: Reports: Heart Murmur LMFT History: Reports: : 3 Para: 2 Other OB/BYN History: KAYLEE-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 Female Surgical History: Reports: Other (See Below) Other Female Surgeries/Procedures: Partial right oophorectomy Dermatological Surgical History: Reports: None Social & Family History - Tobacco Use Smoking Status *Q: Current Every Day Smoker Years of Tobacco use: 20 Packs/Tins Daily: 0.5 - Caffeine Use Caffeine Use: Reports: Coffee Other Caffeine Use: 1 cup per day - Recreational Drug Use Recreational Drug Use: No H&P Review of Systems - Review of Systems: Review Of Systems: See Below General: Reports: No Symptoms HEENT: Reports: No Symptoms Pulmonary: Reports: No Symptoms Cardiovascular: Reports: No Symptoms Gastrointestinal: Reports: No Symptoms Genitourinary: Reports: No Symptoms Musculoskeletal: Reports: No Symptoms Skin: Reports: No Symptoms Psychiatric: Reports: No Symptoms Neurological: Reports: No Symptoms Hematologic/Lymphatic: Reports: No Symptoms Immunologic: Reports: No Symptoms L&D Exam - Exam Exam: See Below - Vital Signs Vital Signs: Last Vital Signs Temp 36.4 C 01/08/18 08:41 Pulse 104 H 01/08/18 08:41 Resp 20 01/08/18 08:41 BP 131/78 01/08/18 08:41 Pulse Ox Weight: 87.543 kg - OB Specific Contraction Intensity: Moderate Movement: Active Heart Tones: Present Heart Rate (FHR) Variability: Moderate (6-25 bmp) Presentation: Vertex - Esparza Score Esparza Score Cervix Position: Anterior Esparza Score Consistency: Soft Esparza Score Effacement: >80% Esparza Score Dilation: > 5 cm Esparza Score 's Station: -1 ,0 Esparza Score Total: 12 - Exam General: Alert, Oriented HEENT: PERRLA, Conjunctiva Clear, EACs Clear, EOMI, Hearing Intact, Mucosa Moist & [place], Nares Patent, Normal Nasal Septum, Posterior Pharynx Clear, TMs Clear Neck: Supple, Trachea Midline Lungs: Clear to Auscultation, Normal Respiratory Effort Cardiovascular: Regular Rate, Regular Rhythm GI/Abdominal Exam: Normal Bowel Sounds, Soft, Non-Tender, No Organomegaly, No Distention, No Abnormal Bruit, No Mass, Pelvis Stable Rectal Exam: Normal Exam, Normal Rectal Tone Genitourinary: Normal external exam, Normal bimanual exam, Normal speculum exam Back Exam: Normal Inspection, Full Range of Motion Extremities: Normal Inspection, Normal Range of Motion, Non-Tender, No Pedal Edema, Normal Capillary Refill Skin: Warm, Dry, Intact Neurological: Cranial Nerves Intact, Reflexes Equal Bilateral Psychiatric: Alert, Normal Affect, Normal Mood - Patient Data Lab Results Last 24 hrs: Laboratory Results - last 24 hr 01/08/18 Range/Units 09:17 WBC 15.4 H (4.5-11.0) K/uL RBC 4.16 (3.30-5.50) M/uL Hgb 13.1 D (12.0-15.0) g/dL Hct 38.7 (36.0-48.0) % MCV 93 (80-98) fL MCH 32 H (27-31) pg MCHC 34 (32-36) % Plt Count 153 (150-400) K/uL Neut % (Auto) 81 H (36-66) % Lymph % (Auto) 13 L (24-44) % [place] % (Auto) 4 (2-6) % Eos % (Auto) 1 L (2-4) % Baso % (Auto) 0 (0-1) % Result Diagrams: 01/08/18 09:17 - Problem List (1) SNOMED Code(s): 84393870 ICD Code: Z34.90 - ENCNTR FOR SUPRVSN OF NORMAL , UNSP, UNSP TRIMESTER Status: Acute Current Visit: Yes Qualifiers: Weeks of gestation: 39 weeks Qualified Code(s): Z3A.39 - 39 weeks gestation of (2) Labor established SNOMED Code(s): 44952374 ICD Code: ZZC5888 - Status: Acute Current Visit: Yes Problem List Initiated/Reviewed/Updated: Yes Orders Last 24hrs: Active Orders 24 hr Category Date Time Status Patient Status [ADT] Routine ADT 01/08/18 10:05 Active Ambulate [RC] PER UNIT ROUTINE Care 01/08/18 10:05 Active Communication Order [RC] ASDIRECTED Care 01/08/18 10:05 Active Heart Tones [RC] PER UNIT ROUTINE Care 01/08/18 10:05 Active Non Stress Test [RC] Click to Edit Care 01/08/18 10:05 Active Insert Urinary Catheter [OM.PC] ASDIRECTED Care 01/08/18 10:15 Ordered Local Anesthetic Infusion Pump [RC] ASDIRECTED Care 01/08/18 10:05 Active Notify Provider Vital Signs [RC] PRN Care 01/08/18 10:05 Active Notify Provider [RC] PRN Care 01/08/18 10:05 Active OB Check [OM.PC] Click to Edit Care 01/08/18 08:41 Ordered PCEA Epidural [RC] ASDIRECTED Care 01/08/18 10:05 Active PCEA Epidural [RC] ASDIRECTED Care 01/08/18 10:05 Active Up ad Mellissa [RC] ASDIRECTED Care 01/08/18 10:05 Active Urinary Catheter Assessment [RC] ASDIRECTED Care 01/08/18 10:05 Active VTE/DVT Education [RC] Click to Edit Care 01/08/18 10:06 Active Verify Patient Consent Obtain [RC] ASDIRECTED Care 01/08/18 10:05 Active Vital Signs [RC] PER UNIT ROUTINE Care 01/08/18 10:05 Active DRUG SCREEN, URINE [URCHEM] Routine Lab 01/08/18 10:12 Ordered UA W/MICROSCOPIC [URIN] Routine Lab 01/08/18 10:12 Ordered Acetaminophen [Tylenol] Med 01/08/18 10:05 Active 650 mg PO Q4H PRN Lactated Ringers [Ringers, Lactated] 1,000 ml Med 01/08/18 10:05 Active IV ONETIME Ondansetron [Zofran] Med 01/08/18 10:05 Active 4 mg IV Q4H PRN Sodium Chloride 0.9% [Saline Flush] Med 01/08/18 10:05 Active 10 ml FLUSH ASDIRECTED PRN fentaNYL [Sublimaze] Med 01/08/18 10:05 Active 100 mcg IVPUSH Q1H PRN DVT/VTE Prophylaxis Reflex [OM.PC] Routine Oth 01/08/18 10:05 Ordered Electronic Heart Tones Ext w TOCO [WOMSER] Per Oth 01/08/18 10:05 Ordered Unit Routine Epidural Catheter Management [OM.PC] Urgent Oth 01/08/18 10:05 Ordered Saline Lock Insert [OM.PC] Routine Oth 01/08/18 10:05 Ordered Resuscitation Status Routine Resus Stat 01/08/18 10:05 Ordered Medication Orders Acetaminophen (Tylenol) 650 mg PO Q4H PRN PRN Reason: Pain (Mild 1-3) and fever Fentanyl (Sublimaze) 100 mcg IVPUSH Q1H PRN PRN Reason: Pain (moderate 4-6) Lactated Ringer's (Ringers, Lactated) 1,000 mls @ 999 mls/hr IV ONETIME ONE Stop: 01/08/18 11:05 Ondansetron HCl (Zofran) 4 mg IV Q4H PRN PRN Reason: Nausea/Vomiting Sodium Chloride (Saline Flush) 10 ml FLUSH ASDIRECTED PRN PRN Reason: Keep Vein Open Assessment/Plan Comment:: 01/08/2018 37 yo here at 40 5/7 gestational weeks presented today in active labor, she says contractions started earlier this am and just kept getting closer together and stronger SVE per RN-6/95 Contractions regular FHTs category one Plan- Monitor labor pattern Monitor FHTs Epidural per patient request IV fluids per protocol Plan and anticipate a vaginal delivery
[2018-01-08] MEDS ORDERED: Ropivacaine 100 ML EPIDUR SCH (11:12)
[2018-01-08] MEDS ORDERED: Naloxone 0.4 MG/ML SDV IVPUSH PRN (11:12)
[2018-01-08] MEDS ORDERED: ePHEDrine 50 MG/ML SDV IV PRN (11:12)
[2018-01-08] MEDS ORDERED: Lactated Ringers 1,000 ML IV SCH (11:45)
--- NOTE | 2018-01-08 12:42 | PCM.PNLD ---
Labor Progress Note - VS & Meds Vital Signs: Last Vital Signs Temp 36.4 C 01/08/18 08:41 Pulse 104 H 01/08/18 09:00 Resp 20 01/08/18 08:41 BP 131/78 01/08/18 09:00 Pulse Ox Active Medications: Current Medications Acetaminophen (Tylenol) 650 mg PO Q4H PRN PRN Reason: Pain (Mild 1-3) and fever Fentanyl (Sublimaze) 100 mcg IVPUSH Q1H PRN PRN Reason: Pain (moderate 4-6) Ropivacaine (Naropin 0.2%) 100 mls @ 0 mls/hr EPIDUR ASDIRECTED [facility]; Protocol Oxytocin/Sodium Chloride (Pitocin In Ns 20 Units/1,000 Ml) 20 unit in 1,000 mls @ 6 mls/hr IV TITRATE [facility]; Protocol Last Titration: 01/08/18 12:15 Dose: 2 munits/min, 6 mls/hr Lactated Ringer's (Ringers, Lactated) 1,000 mls @ 100 mls/hr IV ASDIRECTED [facility] Last Admin: 01/08/18 11:23 Dose: 100 mls/hr Naloxone HCl (Narcan) 0.1 mg IVPUSH Q5M PRN PRN Reason: IF RESP RATE LESS THAN 6 Ondansetron HCl (Zofran) 4 mg IV Q4H PRN PRN Reason: Nausea/Vomiting Sodium Chloride (Saline Flush) 10 ml FLUSH ASDIRECTED PRN PRN Reason: Keep Vein Open Discontinued Medications Ephedrine Sulfate (Ephedrine Sulfate) 5 mg IVPUSH ONETIME ONE Stop: 01/08/18 10:06 Last Admin: 01/08/18 11:57 Dose: 5 mg Lactated Ringer's (Ringers, Lactated) 1,000 mls @ 999 mls/hr IV ONETIME ONE Stop: 01/08/18 11:05 Last Admin: 01/08/18 10:00 Dose: 999 mls/hr Ropivacaine (Naropin 0.2%) Confirm Administered Dose 100 mls @ as directed .ROUTE .STK-MED ONE Stop: 01/08/18 10:19 - Uterine Contractions Contraction Frequency (min): 3.0-3.5 Contraction Duration (sec): 70 Contraction Intensity: Moderate - Monitoring Monitor Mode: External Ultrasound Heart Rate (FHR) Variability: Moderate (6-25 bmp) Accelerations: Present, 15x15 Decelerations: None - Vaginal Exam Dilation (cm): 6-7 Effacement (Percent): 90 Station: -2 Cervical Position: Anterior Sterile Vaginal Exam Performed By: Savita Duckworth - Labor Progress (Free Text) Labor Progress: 01/08/2018 Patient is slowly progressing AROM clear SVE-6-7/90/-2 Contractions more regular FHTs category one Epidural in and comfortable Plan- Continue to monitor labor Continue to monitor FHTs Initiating pitocin per protocl Epidural per patient request Plan and anticipate a vaginal delivery
[2018-01-08] MEDS ORDERED: Ibuprofen 200 MG Tab, 24 Tab Bulk Bottle PO PRN (14:27)
[2018-01-08] MEDS ORDERED: Lanolin 100% Cream 40 GM Tube TOP PRN (14:27)
[2018-01-08] MEDS: Acetaminophen 325 MG Tab, 50 Tab Bulk Bottle PO PRN (16:47)
[2018-01-08] MEDS: Witch Hazel Medicated Pads 100/Jar TOP PRN (16:47)
[2018-01-08] MEDS: Benzocaine 20% Top Spray 56 GM Bottle TOP PRN (16:48)
--- NOTE | 2018-01-08 17:06 | PCM.DEL ---
L & D Note - General Info Date of Service: 01/08/18 Mother's Due Date: 01/03/18 - Delivery Note Delivery Outcome: Livebirth Infant Delivery Method: Spontaneous Vaginal Delivery-Single Delivery Mode: Spontaneous Presentation: Vertex Nuchal Cord: None Anesthesia Type: Epidural Amniotic Fluid Description: Clear Episiotomy Type: None Laceration: None Cord: 3 Vessels Resuscitation Needed: No [place]: Bulb Syringe, Stimulated, Warmed, [place] Used Provider: Savita Duckworth Score 1 min: 9 Score 5 min: 9 Second Stage Interventions: Reports: Encouragement Given, Pushing Effectively Delivery Comments (Free Text/Narrative):: 01/08/2018 37 yo here at 40 5/7 gestational weeks delivered a viable female infant normal spontaneous vaginal delivery on 01/08/2018 @ 1412 over an intact perineum in ALEXIS position. APGARS-9/9, weight-6lbs 15.3oz, length-18.9 inches, was placed on prewarmed blanket on mothers abdomen, delayed cord clamping was done, then infant was dried, stimulated, and warmed. Cord was double clamped by provider and cut by father of the infant. Placenta expressed spontaneously, intact, 3 vessel cord. EBL-300ml. Infant now skin to skin with mother. Both mother and infant stable in labor and delivery room. - General Info Date of Service: 01/08/18 Functional Status: Reports: Pain Controlled - Review of Systems General: Reports: No Symptoms HEENT: Reports: No Symptoms Pulmonary: Reports: No Symptoms Cardiovascular: Reports: No Symptoms Gastrointestinal: Reports: No Symptoms Genitourinary: Reports: No Symptoms Musculoskeletal: Reports: No Symptoms Skin: Reports: No Symptoms Neurological: Reports: No Symptoms Psychiatric: Reports: No Symptoms - Patient Data Vitals - Most Recent: Last Vital Signs Temp 37.2 C 01/08/18 16:42 Pulse 79 01/08/18 16:42 Resp 16 01/08/18 16:42 BP 112/69 01/08/18 16:42 Pulse Ox 97 01/08/18 16:42 Weight - Most Recent: 87.543 kg Lab Results Last 24 Hours: Laboratory Results - last 24 hr 01/08/18 01/08/18 01/08/18 Range/Units 09:17 10:12 10:12 WBC 15.4 H (4.5-11.0) K/uL RBC 4.16 (3.30-5.50) M/uL Hgb 13.1 D (12.0-15.0) g/dL Hct 38.7 (36.0-48.0) % MCV 93 (80-98) fL MCH 32 H (27-31) pg MCHC 34 (32-36) % Plt Count 153 (150-400) K/uL Neut % (Auto) 81 H (36-66) % Lymph % (Auto) 13 L (24-44) % [place] % (Auto) 4 (2-6) % Eos % (Auto) 1 L (2-4) % Baso % (Auto) 0 (0-1) % Urine Color Yellow Urine Appearance Clear Urine pH 8.0 (4.5-8.0) Ur Specific [place] 1.010 (1.008-1.030) Urine Protein Negative (NEGATIVE) mg/dL Urine Glucose (UA) Normal (NEGATIVE) mg/dL Urine Ketones Negative (NEGATIVE) mg/dL Urine Occult Blood Negative (NEGATIVE) Urine Nitrite Negative (NEGATIVE) Urine Bilirubin Negative (NEGATIVE) Urine Urobilinogen Normal (NORMAL) mg/dL Ur Leukocyte Esterase Negative (NEGATIVE) Urine RBC Not seen (0-5) Urine WBC Not seen (0-5) Ur Epithelial Cells Few Amorphous Sediment Not seen Urine Bacteria Not seen Urine Mucus Not seen Urine Opiates Screen Negative (NEGATIVE) Ur Oxycodone Screen Negative (NEGATIVE) Urine Methadone Screen Negative (NEGATIVE) Ur Propoxyphene Screen Negative (NEGATIVE) Ur Barbiturates Screen Negative (NEGATIVE) Ur Tricyclics Screen Negative (NEGATIVE) Ur Phencyclidine Scrn Negative (NEGATIVE) Ur Amphetamine Screen Negative (NEGATIVE) U Methamphetamines Scrn Negative (NEGATIVE) Urine MDMA Screen Negative (NEGATIVE) U Benzodiazepines Scrn Negative (NEGATIVE) U Cocaine Metab Screen Negative (NEGATIVE) U Marijuana (THC) Screen Negative (NEGATIVE) Med Orders - Current: Current Medications Acetaminophen (Tylenol) 650 mg PO Q4H PRN PRN Reason: Pain (Mild 1-3) and fever Acetaminophen (Tylenol Bulk Bottle) 325 - 650 mg PO Q4H PRN PRN Reason: Pain Last Admin: 01/08/18 16:47 Dose: 325 mg Benzocaine (Qrkj-N-Jzljwcy 20% [place]) 0 gm TOP Q4H PRN PRN Reason: Perineal Comfort Measure Last Admin: 01/08/18 16:48 Dose: 1 spray Docusate Sodium (Colace) 100 mg PO BID PRN PRN Reason: Constipation Emollient Ointment (Lansinoh Hpa) 1 gm TOP ASDIRECTED PRN PRN Reason: Sore Nipples Last Admin: 01/08/18 16:48 Dose: 1 applic Fentanyl (Sublimaze) 100 mcg IVPUSH Q1H PRN PRN Reason: Pain (moderate 4-6) Ropivacaine (Naropin 0.2%) 100 mls @ 0 mls/hr EPIDUR ASDIRECTED [facility]; Protocol Oxytocin/Sodium Chloride (Pitocin In Ns 20 Units/1,000 Ml) 20 unit in 1,000 mls @ 6 mls/hr IV TITRATE [facility]; Protocol Last Titration: 01/08/18 14:51 Dose: 125 mls/hr Lactated Ringer's (Ringers, Lactated) 1,000 mls @ 100 mls/hr IV ASDIRECTED [facility] Last Admin: 01/08/18 11:23 Dose: 100 mls/hr Ibuprofen (Motrin Bulk Bottle) 600 mg PO Q6H PRN PRN Reason: Pain Last Admin: 01/08/18 16:48 Dose: 600 mg Naloxone HCl (Narcan) 0.1 mg IVPUSH Q5M PRN PRN Reason: IF RESP RATE LESS THAN 6 Ondansetron HCl (Zofran) 4 mg IV Q4H PRN PRN Reason: Nausea/Vomiting Sodium Chloride (Saline Flush) 10 ml FLUSH ASDIRECTED PRN PRN Reason: Keep Vein Open Man Lala (Jeanine) 1 pad TOP ASDIRECTED PRN PRN Reason: Hemorrhoids Last Admin: 01/08/18 16:47 Dose: 1 pad Discontinued Medications Ephedrine Sulfate (Ephedrine Sulfate) 5 mg IVPUSH ONETIME ONE Stop: 01/08/18 10:06 Last Admin: 01/08/18 11:57 Dose: 5 mg Lactated Ringer's (Ringers, Lactated) 1,000 mls @ 999 mls/hr IV ONETIME ONE Stop: 01/08/18 11:05 Last Admin: 01/08/18 10:00 Dose: 999 mls/hr Ropivacaine (Naropin 0.2%) Confirm Administered Dose 100 mls @ as directed .ROUTE .STK-MED ONE Stop: 01/08/18 10:19 Oxytocin/Sodium Chloride (Pitocin In Ns 20 Units/1,000 Ml) 20 unit in 1,000 mls @ 2,997 mls/hr IV ONETIME ONE; Protocol Stop: 01/08/18 14:47 - Exam General: Alert, Oriented HEENT: Pupils Equal, Pupils Reactive, EOMI, Mucous Membr. Moist/Annex Neck: Supple Lungs: Clear to Auscultation, Normal Respiratory Effort Cardiovascular: Regular Rate, Regular Rhythm GI/Abdominal Exam: Normal Bowel Sounds, Soft, Non-Tender, No Organomegaly, No Distention, No Abnormal Bruit, No Mass, Pelvis Stable (Female) Exam: Normal External Exam, Normal Speculum Exam, Normal Bimanual Exam, Enlarged Uterus, Vaginal Bleeding Back Exam: Normal Inspection, Full Range of Motion Extremities: Normal Inspection, Normal Range of Motion, Non-Tender, No Pedal Edema, Normal Capillary Refill Skin: Warm, Dry, Intact Neurological: No New Focal Deficit Psy/Mental Status: Alert, Normal Affect, Normal Mood - Problem List & Annotations (1) SNOMED Code(s): 68026331 Code(s): Z34.90 - ENCNTR FOR SUPRVSN OF NORMAL , UNSP, UNSP TRIMESTER Status: Acute Current Visit: Yes Qualifiers: Weeks of gestation: 39 weeks Qualified Code(s): Z3A.39 - 39 weeks gestation of (2) Labor established SNOMED Code(s): 83892892 Code(s): TUM4650 - Status: Acute Current Visit: Yes (3) Normal vaginal delivery SNOMED Code(s): 45048831 Code(s): O80 - ENCOUNTER FOR FULL-TERM UNCOMPLICATED DELIVERY Status: Acute Current Visit: Yes - Problem List Review Problem List Initiated/Reviewed/Updated: Yes - My Orders Last 24 Hours: My Active Orders 01/08/18 08:41 OB Check [OM.PC] Click To Edit 01/08/18 10:05 Patient Status [ADT] Routine Ambulate [RC] PER UNIT ROUTINE Communication Order [RC] ASDIRECTED Local Anesthetic Infusion Pump [RC] ASDIRECTED Notify Provider Vital Signs [RC] PRN Notify Provider [RC] PRN PCEA Epidural [RC] ASDIRECTED Up ad Mellissa [RC] ASDIRECTED Urinary Catheter Assessment [RC] ASDIRECTED Vital Signs [RC] PER UNIT ROUTINE Acetaminophen [Tylenol] 650 mg PO Q4H PRN Ondansetron [Zofran] 4 mg IV Q4H PRN Sodium Chloride 0.9% [Saline Flush] 10 ml FLUSH ASDIRECTED PRN fentaNYL [Sublimaze] 100 mcg IVPUSH Q1H PRN DVT/VTE Prophylaxis Reflex [OM.PC] Routine Electronic Heart Tones Ext w TOCO [WOMSER] Per Unit Routine Epidural Catheter Management [OM.PC] Urgent Saline Lock Insert [OM.PC] Routine Resuscitation Status Routine 01/08/18 10:06 VTE/DVT Education [RC] Click to Edit 01/08/18 10:15 Insert Urinary Catheter [OM.PC] ASDIRECTED 01/08/18 11:12 Naloxone [Narcan] 0.1 mg IVPUSH Q5M PRN Ropivacaine [Naropin 0.2%] 100 ml EPIDUR ASDIRECTED 01/08/18 11:30 Oxytocin/Normal Saline [Pitocin in NS 20 Units/1,000 ML] 20 unit in 1,000 ml IV TITRATE 01/08/18 11:45 Lactated Ringers [Ringers, Lactated] 1,000 ml IV ASDIRECTED 01/08/18 14:27 Patient Status [ADT] Routine Acetaminophen [Tylenol Bulk Bottle] 325 - 650 mg PO Q4H PRN Benzocaine [Lsrp-C-Yuljopa 20% [place]] See Dose Instructions TOP Q4H PRN Docusate Sodium [Colace] 100 mg PO BID PRN Ibuprofen [Motrin Bulk Bottle] 600 mg PO Q6H PRN Lanolin [Lansinoh HPA] 1 gm TOP ASDIRECTED PRN Witch Dai [Tucks] 1 pad TOP ASDIRECTED PRN Assess Uterine Involution [WOMSER] Per Unit Routine 01/08/18 14:28 Perineal Care [OM.PC] Per Unit Routine 01/09/18 06:00 CBC WITH AUTO DIFF [HEME] Routine - Assessment Assessment:: 01/08/2018 37 yo G3 now P3 at 40 5/7 gestational weeks of a viable female infant without complications Breast and bottle feeding Labs-ABO positive, Hep B neg, Hep C neg, HIV neg, RPR nonreactive, Rubella Immune, GBS negative - Plan Plan:: 01/08/2018 37 yo here at 40 5/7 gestational weeks presented today in active labor, she says contractions started earlier this am and just kept getting closer together and stronger SVE per RN- Contractions regular FHTs category one Plan- Monitor labor pattern Monitor FHTs Epidural per patient request IV fluids per protocol Plan and anticipate a vaginal delivery 01/08/2018 Routine cares Encourage and support CBC in am Plan discharge in 24-48hours
--- NOTE | 2018-01-09 08:18 | PCM.PNPP ---
- General Info Date of Service: 01/09/18 (PPD1) Admission Dx/Problem (Free Text): Patient Status Order with Admit Dx/Problem 01/08/18 10:05 Patient Status [ADT] Routine Admission Diagnosis/Problem Admission Diagnosis/Problem Functional Status: Reports: Pain Controlled - Review of Systems General: Reports: No Symptoms HEENT: Reports: No Symptoms Pulmonary: Reports: No Symptoms Cardiovascular: Reports: No Symptoms Gastrointestinal: Reports: No Symptoms Genitourinary: Reports: No Symptoms Musculoskeletal: Reports: No Symptoms Skin: Reports: No Symptoms Neurological: Reports: No Symptoms Psychiatric: Reports: No Symptoms - General Info Date of Service: 01/09/18 - Patient Data Vital Signs - Most Recent: Last Vital Signs Temp 97.1 F 01/09/18 08:05 Pulse 71 01/09/18 08:05 Resp 18 01/09/18 08:05 BP 99/61 01/09/18 08:05 Pulse Ox 97 01/09/18 08:05 Weight - Most Recent: 193 lb I&O - Last 24 Hours: Intake & Output 01/08/18 01/09/18 01/09/18 22:59 06:59 14:59 Intake Total 1000 Balance 1000 Lab Results - Last 24 Hours: Laboratory Results - last 24 hr 01/08/18 01/08/18 01/08/18 Range/Units 09:17 10:12 10:12 WBC 15.4 H (4.5-11.0) K/uL RBC 4.16 (3.30-5.50) M/uL Hgb 13.1 D (12.0-15.0) g/dL Hct 38.7 (36.0-48.0) % MCV 93 (80-98) fL MCH 32 H (27-31) pg MCHC 34 (32-36) % Plt Count 153 (150-400) K/uL Neut % (Auto) 81 H (36-66) % Lymph % (Auto) 13 L (24-44) % [place] % (Auto) 4 (2-6) % Eos % (Auto) 1 L (2-4) % Baso % (Auto) 0 (0-1) % Urine Color Yellow Urine Appearance Clear Urine pH 8.0 (4.5-8.0) Ur Specific [place] 1.010 (1.008-1.030) Urine Protein Negative (NEGATIVE) mg/dL Urine Glucose (UA) Normal (NEGATIVE) mg/dL Urine Ketones Negative (NEGATIVE) mg/dL Urine Occult Blood Negative (NEGATIVE) Urine Nitrite Negative (NEGATIVE) Urine Bilirubin Negative (NEGATIVE) Urine Urobilinogen Normal (NORMAL) mg/dL Ur Leukocyte Esterase Negative (NEGATIVE) Urine RBC Not seen (0-5) Urine WBC Not seen (0-5) Ur Epithelial Cells Few Amorphous Sediment Not seen Urine Bacteria Not seen Urine Mucus Not seen Urine Opiates Screen Negative (NEGATIVE) Ur Oxycodone Screen Negative (NEGATIVE) Urine Methadone Screen Negative (NEGATIVE) Ur Propoxyphene Screen Negative (NEGATIVE) Ur Barbiturates Screen Negative (NEGATIVE) Ur Tricyclics Screen Negative (NEGATIVE) Ur Phencyclidine Scrn Negative (NEGATIVE) Ur Amphetamine Screen Negative (NEGATIVE) U Methamphetamines Scrn Negative (NEGATIVE) Urine MDMA Screen Negative (NEGATIVE) U Benzodiazepines Scrn Negative (NEGATIVE) U Cocaine Metab Screen Negative (NEGATIVE) U Marijuana (THC) Screen Negative (NEGATIVE) 01/09/18 Range/Units 06:00 WBC 15.8 H (4.5-11.0) K/uL RBC 3.69 (3.30-5.50) M/uL Hgb 11.8 L (12.0-15.0) g/dL Hct 34.9 L (36.0-48.0) % MCV 95 (80-98) fL MCH 32 H (27-31) pg MCHC 34 (32-36) % Plt Count 137 L (150-400) K/uL Neut % (Auto) 77 H (36-66) % Lymph % (Auto) 15 L (24-44) % [place] % (Auto) 6 (2-6) % Eos % (Auto) 1 L (2-4) % Baso % (Auto) 0 (0-1) % Urine Color Urine Appearance Urine pH (4.5-8.0) Ur Specific [place] (1.008-1.030) Urine Protein (NEGATIVE) mg/dL Urine Glucose (UA) (NEGATIVE) mg/dL Urine Ketones (NEGATIVE) mg/dL Urine Occult Blood (NEGATIVE) Urine Nitrite (NEGATIVE) Urine Bilirubin (NEGATIVE) Urine Urobilinogen (NORMAL) mg/dL Ur Leukocyte Esterase (NEGATIVE) Urine RBC (0-5) Urine WBC (0-5) Ur Epithelial Cells Amorphous Sediment Urine Bacteria Urine Mucus Urine Opiates Screen (NEGATIVE) Ur Oxycodone Screen (NEGATIVE) Urine Methadone Screen (NEGATIVE) Ur Propoxyphene Screen (NEGATIVE) Ur Barbiturates Screen (NEGATIVE) Ur Tricyclics Screen (NEGATIVE) Ur Phencyclidine Scrn (NEGATIVE) Ur Amphetamine Screen (NEGATIVE) U Methamphetamines Scrn (NEGATIVE) Urine MDMA Screen (NEGATIVE) U Benzodiazepines Scrn (NEGATIVE) U Cocaine Metab Screen (NEGATIVE) U Marijuana (THC) Screen (NEGATIVE) Med Orders - Current: Current Medications Acetaminophen (Tylenol) 650 mg PO Q4H PRN PRN Reason: Pain (Mild 1-3) and fever Acetaminophen (Tylenol Bulk Bottle) 325 - 650 mg PO Q4H PRN PRN Reason: Pain Last Admin: 01/08/18 16:47 Dose: 325 mg Benzocaine (Vkcu-X-Iahjkfd 20% [place]) 0 gm TOP Q4H PRN PRN Reason: Perineal Comfort Measure Last Admin: 01/08/18 16:48 Dose: 1 spray Docusate Sodium (Colace) 100 mg PO BID PRN PRN Reason: Constipation Emollient Ointment (Lansinoh Hpa) 1 gm TOP ASDIRECTED PRN PRN Reason: Sore Nipples Last Admin: 01/08/18 16:48 Dose: 1 applic Ibuprofen (Motrin Bulk Bottle) 600 mg PO Q6H PRN PRN Reason: Pain Last Admin: 01/08/18 16:48 Dose: 600 mg Ondansetron HCl (Zofran) 4 mg IV Q4H PRN PRN Reason: Nausea/Vomiting Sodium Chloride (Saline Flush) 10 ml FLUSH ASDIRECTED PRN PRN Reason: Keep Vein Open Witchristine Lala (Tucks) 1 pad TOP ASDIRECTED PRN PRN Reason: Hemorrhoids Last Admin: 01/08/18 16:47 Dose: 1 pad Discontinued Medications Ephedrine Sulfate (Ephedrine Sulfate) 5 mg IVPUSH ONETIME ONE Stop: 01/08/18 10:06 Last Admin: 01/08/18 11:57 Dose: 5 mg Fentanyl (Sublimaze) 100 mcg IVPUSH Q1H PRN PRN Reason: Pain (moderate 4-6) Lactated Ringer's (Ringers, Lactated) 1,000 mls @ 999 mls/hr IV ONETIME ONE Stop: 01/08/18 11:05 Last Admin: 01/08/18 10:00 Dose: 999 mls/hr Ropivacaine (Naropin 0.2%) Confirm Administered Dose 100 mls @ as directed .ROUTE .STK-MED ONE Stop: 01/08/18 10:19 Ropivacaine (Naropin 0.2%) 100 mls @ 0 mls/hr EPIDUR ASDIRECTED [facility]; Protocol Oxytocin/Sodium Chloride (Pitocin In Ns 20 Units/1,000 Ml) 20 unit in 1,000 mls @ 6 mls/hr IV TITRATE [facility]; Protocol Last Titration: 01/08/18 14:51 Dose: 125 mls/hr Lactated Ringer's (Ringers, Lactated) 1,000 mls @ 100 mls/hr IV ASDIRECTED [facility] Last Admin: 01/08/18 11:23 Dose: 100 mls/hr Oxytocin/Sodium Chloride (Pitocin In Ns 20 Units/1,000 Ml) 20 unit in 1,000 mls @ 2,997 mls/hr IV ONETIME ONE; Protocol Stop: 01/08/18 14:47 Last Admin: 01/08/18 18:04 Dose: Not Given Naloxone HCl (Narcan) 0.1 mg IVPUSH Q5M PRN PRN Reason: IF RESP RATE LESS THAN 6 - Interaction Disposition, : Ronan in Room with Family Interaction: Holding Infant Feeding: Breastfed Infant; Nursed Well Support Person: - Recovery Exam Fundal Tone: Firm Fundal Level: 1 Fingerbreadths Below Umbilicus Fundal Placement: Midline Lochia Amount: Moderate Lochia Color: Rubra/Red Perineum Description: Edematous Episiotomy/Laceration: None Urinary Elimination: Voided - Exam General: Alert, Oriented HEENT: Pupils Equal Neck: Supple Lungs: Clear to Auscultation, Normal Respiratory Effort Cardiovascular: Regular Rate, Regular Rhythm GI/Abdominal Exam: Normal Bowel Sounds, Soft, Non-Tender, No Organomegaly, No Distention, No Abnormal Bruit, No Mass, Pelvis Stable Extremities: Normal Inspection, Normal Range of Motion, Non-Tender, No Pedal Edema, Normal Capillary Refill Skin: Warm, Dry, Intact Wound/Incisions: Healing Well Neurological: No New Focal Deficit Psy/Mental Status: Alert, Normal Affect, Normal Mood - Problem List & Annotations (1) (infant) SNOMED Code(s): 753702684 Code(s): Z78.9 - OTHER SPECIFIED HEALTH STATUS Status: Acute Current Visit: Yes (2) SNOMED Code(s): 52853002 Code(s): Z34.90 - ENCNTR FOR SUPRVSN OF NORMAL , UNSP, UNSP TRIMESTER Status: Acute Current Visit: Yes Qualifiers: Weeks of gestation: 39 weeks Qualified Code(s): Z3A.39 - 39 weeks gestation of (3) Normal vaginal delivery SNOMED Code(s): 21792531 Code(s): O80 - ENCOUNTER FOR FULL-TERM UNCOMPLICATED DELIVERY Status: Acute Current Visit: Yes - Problem List Review Problem List Initiated/Reviewed/Updated: Yes - Assessment Assessment:: 01/08/2018 37 yo G3 now P3 at 40 5/7 gestational weeks of a viable female without complications Breast and bottle feeding Labs-ABO positive, Hep B neg, Hep C neg, HIV neg, RPR nonreactive, Rubella Immune, GBS negative 01/09/18 without complications doing well, has mild cramping without problem HGB 11.8 - Plan Plan:: 01/08/2018 37 yo here at 40 5/7 gestational weeks presented today in active labor, she says contractions started earlier this am and just kept getting closer together and stronger SVE per RN-6/95 Contractions regular FHTs category one Plan- Monitor labor pattern Monitor FHTs Epidural per patient request IV fluids per protocol Plan and anticipate a vaginal delivery 01/08/2018 Routine cares Encourage and support CBC in am Plan discharge in 24-48hours 12/09/17 Routine cares support breatfeeding Home in AM
--- NOTE | 2018-01-09 08:23 | ANES ---
DATE OF SERVICE: 01/08/2018 PAIN CLINIC NOTE INDICATIONS: Pretty is a 37-year-old female patient in today in labor. I was at the bedside at 1020 hours. Brief history and physical were reviewed with the patient. The patient stated that she has had no abnormal bleeding issues in the past. She states that her has been normal. No high blood pressure issues. Platelet count was 153,000. The risks and benefits of labor epidural were discussed with the patient. The patient verbalized her understanding and wishes to proceed with the labor epidural today. Consent was signed. Time-out was done. DESCRIPTION OF PROCEDURE: The patient was then sat at the edge of the bed. Betadine prep x3 to the lumbar region was done. A sterile drape was placed. A 1% lidocaine skin wheal and deep was done. A 17-gauge Tuohy needle was inserted in approximately the L3-L4 space. Loss of resistance was achieved at approximately 6 cm. Negative paresthesia, negative heme, and negative CSF were noted. I then proceeded to insert catheter without difficulty. The Tuohy needle was then withdrawn. The catheter was pulled back to approximately 14 cm. Catheter was then properly secured and taped. I then proceeded to give the patient a 4 mL test dose with no negative effects noted. The patient did not complain of significant numbness or tingling in her legs, and still was able to move her legs after the test dose. Heart rate also maintained the same. Then, we laid the patient supine with some left uterine displacement. I then proceeded to give the patient 12 mL of 0.2% ropivacaine via the epidural. I then started her on a 0.2% ropivacaine drip at 12 mL an hour. The patient had blood pressures maintained throughout. Please refer to the nurse's notes for vital signs. The patient stated that she was comfortable and starting to feel numbness and tingling down her legs. We will continue to monitor the patient closely. Diego Ramos CRNA /[id number]
[2018-01-09] MEDS: Docusate Sodium 100 MG Cap PO PRN (10:07)
[2018-01-10 07:35] VITALS: BP 111/64
[2018-01-10] MEDS: Benzocaine 20% Top Spray 56 GM Bottle TOP PRN (07:44)
[2018-01-10] MEDS: Witch Hazel Medicated Pads 100/Jar TOP PRN (07:44)
[2018-01-10] MEDS: Acetaminophen 325 MG Tab, 50 Tab Bulk Bottle PO PRN (07:45)
[2018-01-10] MEDS: Docusate Sodium 100 MG Cap PO PRN (07:49)
--- NOTE | 2018-01-10 09:02 | PCM.PNPP ---
- General Info Date of Service: 01/10/18 (PPD 2 D/C) Admission Dx/Problem (Free Text): Patient Status Order with Admit Dx/Problem 01/08/18 10:05 Patient Status [ADT] Routine Admission Diagnosis/Problem Admission Diagnosis/Problem Functional Status: Reports: Pain Controlled - Review of Systems General: Reports: No Symptoms HEENT: Reports: No Symptoms Pulmonary: Reports: No Symptoms Cardiovascular: Reports: No Symptoms Gastrointestinal: Reports: No Symptoms Genitourinary: Reports: No Symptoms Musculoskeletal: Reports: No Symptoms Skin: Reports: No Symptoms Neurological: Reports: No Symptoms Psychiatric: Reports: No Symptoms - General Info Date of Service: 01/10/18 - Patient Data Vital Signs - Most Recent: Last Vital Signs Temp 97.5 F 01/10/18 07:35 Pulse 71 01/10/18 07:35 Resp 16 01/10/18 07:35 BP 111/64 01/10/18 07:35 Pulse Ox 99 01/10/18 07:35 Weight - Most Recent: 193 lb I&O - Last 24 Hours: Intake & Output 01/09/18 01/10/18 01/10/18 22:59 06:59 14:59 Intake Total 800 Balance 800 Med Orders - Current: Current Medications Acetaminophen (Tylenol) 650 mg PO Q4H PRN PRN Reason: Pain (Mild 1-3) and fever Acetaminophen (Tylenol Bulk Bottle) 325 - 650 mg PO Q4H PRN PRN Reason: Pain Last Admin: 01/08/18 16:47 Dose: 325 mg Benzocaine (Etem-D-Zktritu 20% [place]) 0 gm TOP Q4H PRN PRN Reason: Perineal Comfort Measure Last Admin: 01/08/18 16:48 Dose: 1 spray Docusate Sodium (Colace) 100 mg PO BID PRN PRN Reason: Constipation Last Admin: 01/10/18 07:49 Dose: 100 mg Emollient Ointment (Lansinoh Hpa) 1 gm TOP ASDIRECTED PRN PRN Reason: Sore Nipples Last Admin: 01/08/18 16:48 Dose: 1 applic Ibuprofen (Motrin Bulk Bottle) 600 mg PO Q6H PRN PRN Reason: Pain Last Admin: 01/08/18 16:48 Dose: 600 mg Ondansetron HCl (Zofran) 4 mg IV Q4H PRN PRN Reason: Nausea/Vomiting Sodium Chloride (Saline Flush) 10 ml FLUSH ASDIRECTED PRN PRN Reason: Keep Vein Open Witch Dai (Tucks) 1 pad TOP ASDIRECTED PRN PRN Reason: Hemorrhoids Last Admin: 01/08/18 16:47 Dose: 1 pad Discontinued Medications Ephedrine Sulfate (Ephedrine Sulfate) 5 mg IVPUSH ONETIME ONE Stop: 01/08/18 10:06 Last Admin: 01/08/18 11:57 Dose: 5 mg Fentanyl (Sublimaze) 100 mcg IVPUSH Q1H PRN PRN Reason: Pain (moderate 4-6) Lactated Ringer's (Ringers, Lactated) 1,000 mls @ 999 mls/hr IV ONETIME ONE Stop: 01/08/18 11:05 Last Admin: 01/08/18 10:00 Dose: 999 mls/hr Ropivacaine (Naropin 0.2%) Confirm Administered Dose 100 mls @ as directed .ROUTE .STK-MED ONE Stop: 01/08/18 10:19 Ropivacaine (Naropin 0.2%) 100 mls @ 0 mls/hr EPIDUR ASDIRECTED JULIA; Protocol Oxytocin/Sodium Chloride (Pitocin In Ns 20 Units/1,000 Ml) 20 unit in 1,000 mls @ 6 mls/hr IV TITRATE JULIA; Protocol Last Titration: 01/08/18 14:51 Dose: 125 mls/hr Lactated Ringer's (Ringers, Lactated) 1,000 mls @ 100 mls/hr IV ASDIRECTED JULIA Last Admin: 01/08/18 11:23 Dose: 100 mls/hr Oxytocin/Sodium Chloride (Pitocin In Ns 20 Units/1,000 Ml) 20 unit in 1,000 mls @ 2,997 mls/hr IV ONETIME ONE; Protocol Stop: 01/08/18 14:47 Last Admin: 01/08/18 18:04 Dose: Not Given Naloxone HCl (Narcan) 0.1 mg IVPUSH Q5M PRN PRN Reason: IF RESP RATE LESS THAN 6 - Interaction Infant Disposition, : in Room with Family Interaction: Holding Infant Feeding: Breastfed ; Nursed Well Support Person: - Recovery Exam Fundal Tone: Firm Fundal Level: 2 Fingerbreadths Below Umbilicus Fundal Placement: Left Lochia Amount: Small Lochia Color: Rubra/Red Perineum Description: Intact, Minimal Bruising/Swelling Episiotomy/Laceration: Approximated Urinary Elimination: Voided - Exam General: Alert, Oriented HEENT: Pupils Equal Neck: Supple Lungs: Clear to Auscultation, Normal Respiratory Effort, Wheezing Cardiovascular: Regular Rate, Regular Rhythm GI/Abdominal Exam: Normal Bowel Sounds, Soft, Non-Tender, No Organomegaly, No Distention, No Abnormal Bruit, No Mass, Pelvis Stable Extremities: Normal Inspection, Normal Range of Motion, Non-Tender, No Pedal Edema, Normal Capillary Refill Skin: Warm, Dry, Intact Wound/Incisions: Healing Well Neurological: No New Focal Deficit Psy/Mental Status: Alert, Normal Affect, Normal Mood - Problem List & Annotations (1) () SNOMED Code(s): 530557628 Code(s): Z78.9 - OTHER SPECIFIED HEALTH STATUS Status: Acute Current Visit: Yes (2) SNOMED Code(s): 08361709 Code(s): Z34.90 - ENCNTR FOR SUPRVSN OF NORMAL , UNSP, UNSP TRIMESTER Status: Acute Current Visit: Yes Qualifiers: Weeks of gestation: 39 weeks Qualified Code(s): Z3A.39 - 39 weeks gestation of (3) Normal vaginal delivery SNOMED Code(s): 20028361 Code(s): O80 - ENCOUNTER FOR FULL-TERM UNCOMPLICATED DELIVERY Status: Acute Current Visit: Yes - Problem List Review Problem List Initiated/Reviewed/Updated: Yes - Assessment Assessment:: 01/08/2018 37 yo G3 now P3 at 40 5/7 gestational weeks of a viable female without complications Breast and bottle feeding Labs-ABO positive, Hep B neg, Hep C neg, HIV neg, RPR nonreactive, Rubella Immune, GBS negative 01/09/18 without complications doing well, has mild cramping without problem HGB 11.8 01/10/18 Doing well Has a smokers cough, needs IS and instruction for deep breathing at home without problem Flow light and cramping mild Mood happy Wants to go home - Plan Plan:: 01/08/2018 37 yo here at 40 5/7 gestational weeks presented today in active labor, she says contractions started earlier this am and just kept getting closer together and stronger SVE per RN- Contractions regular FHTs category one Plan- Monitor labor pattern Monitor FHTs Epidural per patient request IV fluids per protocol Plan and anticipate a vaginal delivery 01/08/2018 Routine cares Encourage and support CBC in am Plan discharge in 24-48hours 01/09/18 Routine cares support breatfeeding Home in AM 01/10/18 Home today See me the week of Feb 23 for a post visit
== END 2018-01-10 11:55 | disposition home or self-care (01) | DRG 775 ==
LOC: JP.OBCHECK 08:27 → JP.OB 10:05 → OBSVTOIN 14:12 → JP.OB 14:12 → JP.MS 17:18
PROVIDERS: ADMIT Advanced Practice Midwife; ATTEND Advanced Practice Midwife
PROC: 10E0XZZ Delivery of Products of Conception, External Approach (ICD-10-PCS; principal; 2018-01-08)
PROC: 10907ZC Drainage of Amniotic Fluid, Therapeutic from Products of Conception, Via Natural or Artificial Opening (ICD-10-PCS; 2018-01-08)
PROC: 00HU33Z Insertion of Infusion Device into Spinal Canal, Percutaneous Approach (ICD-10-PCS; 2018-01-08)
DX: O99.344 Other mental disorders complicating childbirth (principal); F41.9 Anxiety disorder, unspecified; O99.334 Smoking (tobacco) complicating childbirth; F17.210 Nicotine dependence, cigarettes, uncomplicated; Z3A.40 40 weeks gestation of pregnancy; Z37.0 Single live birth; H54.7 Unspecified visual loss; O75.89 Other specified complications of labor and delivery; O48.0 Post-term pregnancy
CPT/HCPCS: 36415; 51702; 59409; 80305-QW; 81001; 85025; 99211; A9270-GY; J2590; J2795; J7120

== ENCOUNTER 2019-11-13 03:13 | Emergency (ER) | payer MEDICAID ==
[2019-11-13 03:32] VITALS: BP 123/80; PULSE 82
[2019-11-13] MEDS ORDERED: Clindamycin HCl 150 MG Cap PO ONE (03:37)
--- NOTE | 2019-11-13 03:43 | EDM.PDOC ---
ED HPI GENERAL MEDICAL PROBLEM - General Chief Complaint: ENT Problem Stated Complaint: TOOTH ACHE BOTH RIGHT Time Seen by Provider: 11/13/19 03:25 Source of Information: Reports: Patient, Old Records, RN History Limitations: Reports: No Limitations - History of Present Illness INITIAL COMMENTS - FREE TEXT/NARRATIVE: 39 yo female with recent root canal has developed increasing pain associated with that tooth over the past day. Her dentist called in an Rx for an antibiotic yesterday, but has hasn't picked it up yet. Is taking ibuprofen without adequate relief. No fever. Feels some swelling in that area. Onset: Gradual Onset Date: 11/12/19 Duration: Day(s): (1), Getting Worse Location: Reports: Face (R mandible) Quality: Reports: Ache Severity: Moderate Improves with: Reports: Medication Worsens with: Reports: Other (time) Context: Reports: Other (See HPI) Associated Symptoms: Reports: No Other Symptoms. 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 Female Surgical History: Reports: Other (See Below) Other Female Surgeries/Procedures: Partial right oophorectomy Dermatological Surgical History: Reports: None Social & Family History - Tobacco Use Smoking Status *Q: Current Every Day Smoker Years of Tobacco use: 18 Packs/Tins Daily: 0.5 Used Tobacco, but Quit: No Second Hand Smoke Exposure: Yes - Caffeine Use Caffeine Use: Reports: Coffee Other Caffeine Use: 1 cup per day - Recreational Drug Use Recreational Drug Use: No ED ROS ENT - Review of Systems Review Of Systems: See Below Constitutional: Reports: No Symptoms HEENT: Reports: Dental Pain Respiratory: Reports: No Symptoms Skin: Reports: No Symptoms Neurological: Reports: No Symptoms ED EXAM, ENT - Physical Exam Exam: See Below Exam Limited By: No Limitations General Appearance: Alert, WD/WN, No Apparent Distress Eye Exam: Bilateral Eye: Normal Inspection Ears: Normal External Exam, Normal Canal, Hearing Grossly Normal Nose: Normal Inspection, No Blood Mouth/Throat: Normal Lips, Normal Oropharynx, Bleeding (from 2nd from the rear R mandibular molar. There is a small clot at the gumline along the outer margin of that tooth. ). No: Normal Teeth Head: Atraumatic, Normocephalic Neck: Normal Inspection. No: Lymphadenopathy (R), Lymphadenopathy (L) Course - Vital Signs Text/Narrative:: I used warm water and a syringe and irrigated away the clot adherent to the outer aspect of the affected molar. Last Recorded V/S: Last Vital Signs Temp 35.7 C L 11/13/19 03:31 Pulse 82 11/13/19 03:31 Resp 16 11/13/19 03:31 BP 123/80 11/13/19 03:31 Pulse Ox 98 11/13/19 03:31 - Orders/Labs/Meds Orders: Active Orders 24 hr Category Date Time Status clindamycin HCL [Cleocin] Med 11/13/19 03:37 Once 300 mg PO ONETIME ONE Departure - Departure Time of Disposition: 03:43 Disposition: Home, Self-Care 01 Condition: Fair Clinical Impression: Pain, dental - Discharge Information *PRESCRIPTION DRUG MONITORING PROGRAM REVIEWED*: No *COPY OF PRESCRIPTION DRUG MONITORING REPORT IN PATIENT FREDERIC: No Referrals: El Castellon MD [Primary Care Provider] - Additional Instructions: Get your Rx filled for your antibiotic later today and take as directed. For pain relief take ibuprofen 600 mg every 6 hrs with food. Add acetaminophen OR [place] for added relief. See your dentist in follow up vero. Sepsis Event Note (ED) - Evaluation Sepsis Screening Result: No Definite Risk - Focused Exam Vital Signs: Vital Signs Temp Pulse Resp BP Pulse Ox 11/13/19 03:31 35.7 C L 82 16 123/80 98 - My Orders Last 24 Hours: My Active Orders 11/13/19 03:37 clindamycin HCL [Cleocin] 300 mg PO ONETIME ONE - Assessment/Plan Last 24 Hours: My Active Orders 11/13/19 03:37 clindamycin HCL [Cleocin] 300 mg PO ONETIME ONE
== END 2019-11-13 04:00 | disposition home or self-care (01) ==
LOC: JP.ED 03:13
DX: K08.89 Other specified disorders of teeth and supporting structures (principal); F17.210 Nicotine dependence, cigarettes, uncomplicated; F41.9 Anxiety disorder, unspecified; Z79.899 Other long term (current) drug therapy
CPT/HCPCS: 99282; A9270

== ENCOUNTER 2023-07-21 09:35 | Emergency (ER) | payer MEDICAID ==
[2023-07-21] MEDS ORDERED: Naloxone 0.4 MG/ML SDV IVPUSH PRN (10:18)
[2023-07-21] MEDS: HYDROmorphone 1 MG/ML Syringe IVPUSH ONE ×2 (10:29→11:27)
[2023-07-21] MEDS: Sodium Chloride 0.9% 1,000 ML IV ONE (10:30)
[2023-07-21 10:42] LABS: BASOPHILS ABSOLUTE AUTO 0.07 K/uL (0.00-0.10); BASOPHILS PERCENT AUTO 0.8 % (0.1-1.3); EOSINOPHILS ABSOLUTE AUTO 0.12 K/uL (0.00-0.40); EOSINOPHILS PERCENT AUTO 1.3 % (0.0-5.4); HEMATOCRIT 35.8 % (34.3-46.0); HEMOGLOBIN 11.7 g/dL (11.2-15.5); IMMATURE GRAN ABSOLUTE AUTO 0.05 K/uL (0.00-0.23); IMMATURE GRAN PERCENT AUTO 0.5 % (0.0-0.7); LYMPHOCYTES ABSOLUTE AUTO 2.85 K/uL (0.8-3.3); MEAN CORPUSCULAR HEMOGLOBIN 28.4 pg (31.6-35.5); MEAN CORPUSCULAR HGB CONC 32.7 g/dL (31.6-35.5); MEAN CORPUSCULAR VOLUME 86.9 fL (81.4-99.0); MONOCYTES ABSOLUTE AUTO 0.46 K/uL (0.20-0.90); NEUTROPHILS ABSOLUTE AUTO 5.64 K/uL (1.0-7.6); NEUTROPHILS PERCENT AUTO 61.4 % (40.0-78.1); PLATELET COUNT,PLT 258 K/uL (130-375); RED BLOOD CELL COUNT 4.12 M/uL (3.77-5.24); WHITE BLOOD CELL COUNT,WBC 9.2 K/uL (3.2-11.0)
[2023-07-21 10:43] LABS: APPEARANCE,URINE CLEAR (CLEAR); BILIRUBIN,URINE NEGATIVE (NEGATIVE); COLOR,URINE YELLOW (YELLOW); GLUCOSE,URINE NEGATIVE (NEGATIVE); KETONES,URINE NEGATIVE (NEGATIVE); LEUKOCYTE ESTERASE,URINE NEGATIVE (NEGATIVE); NITRITE,URINE NEGATIVE (NEGATIVE); OCCULT BLOOD,URINE MODERATE (NEGATIVE); PH,URINE 6.5 (5.0-8.0); PROTEIN,URINE NEGATIVE (NEGATIVE); UROBILINOGEN,URINE 0.2 EU/dL (0.2-1.0)
[2023-07-21 10:56] LABS: AMORPHOUS SEDIMENT,URINE NOT SEEN; BACTERIA,URINE NOT SEEN; EPITHELIAL CELLS,URINE FEW; MUCUS,URINE NOT SEEN; WBC,URINE NOT SEEN (0-5)
[2023-07-21 11:05] LABS: A/G RATIO 1.2 (1.2-2.2); ALANINE AMINOTRANSFERASE,ALT 16 U/L (12-78); ALBUMIN 3.6 g/dL (3.4-5.0); ALKALINE PHOSPHATASE 87 U/L (46-116); ASPARTATE AMNIOTRANSFERASE,AST 21 U/L (15-37); BILIRUBIN TOTAL 0.4 mg/dL (0.2-1.0); BLOOD UREA NITROGEN,BUN 11 mg/dL (7-18); CALCIUM 8.8 mg/dL (8.5-10.1); CARBON DIOXIDE,CO2 25 mmol/L (21-32); CHLORIDE,CL 103 mmol/L (100-108); CREATININE 0.8 mg/dL (0.6-1.0); EST CRCL DRUG DOSING (CG) 93.35 mL/min; ESTIMATED GFR 95 mL/min (>60); GLUCOSE RANDOM 91 mg/dL (74-106); POTASSIUM,K 3.9 mmol/L (3.6-5.2); PROTEIN TOTAL,TP 6.5 g/dL (6.4-8.2); SODIUM,NA 139 mmol/L (140-148)
[2023-07-21 11:33] LABS: ANION GAP 14.9 mmol/L (5.0-14.0)
[2023-07-21 13:06] VITALS: BP 167/63
[2023-07-21 13:51] VITALS: PULSE 72
[2023-07-24 10:13] LABS: APTIMA MEDIA TYPE Urine; C. TRACHOMATIS BY TMA Negative (Negative); N. GONORRHOEAE BY TMA Negative (Negative); SPECIMEN SOURCE Urine
== END 2023-07-21 14:45 | disposition home or self-care (01) ==
LOC: JP.ED 09:35
DX: N83.202 Unspecified ovarian cyst, left side (principal); Z79.899 Other long term (current) drug therapy; Z86.19 Personal history of other infectious and parasitic diseases
CPT/HCPCS: 36415; 76830; 76856; 80053; 81001; 81025; 85025; 87491; 87591; 93976; 96361; 96374; 96376; 99284; J1170; J7030

== ENCOUNTER 2023-08-07 18:33 | Emergency (ER) | payer MEDICAID ==
[2023-08-07 19:38] LABS: BASOPHILS ABSOLUTE AUTO 0.08 K/uL (0.00-0.10); BASOPHILS PERCENT AUTO 0.5 % (0.1-1.3); EOSINOPHILS ABSOLUTE AUTO 0.22 K/uL (0.00-0.40); EOSINOPHILS PERCENT AUTO 1.3 % (0.0-5.4); HEMATOCRIT 39.9 % (34.3-46.0); HEMOGLOBIN 13.1 g/dL (11.2-15.5); IMMATURE GRAN ABSOLUTE AUTO 0.09 K/uL (0.00-0.23); IMMATURE GRAN PERCENT AUTO 0.5 % (0.0-0.7); LYMPHOCYTES PERCENT AUTO 22.5 % (11.4-47.7); MEAN CORPUSCULAR HEMOGLOBIN 28.6 pg (31.6-35.5); MEAN CORPUSCULAR HGB CONC 32.8 g/dL (31.6-35.5); MEAN CORPUSCULAR VOLUME 87.1 fL (81.4-99.0); MONOCYTES PERCENT AUTO 5.3 % (3.3-12.6); NEUTROPHILS ABSOLUTE AUTO 11.77 K/uL (1.0-7.6); NEUTROPHILS PERCENT AUTO 69.9 % (40.0-78.1); PLATELET COUNT,PLT 273 K/uL (130-375); RED BLOOD CELL COUNT 4.58 M/uL (3.77-5.24); WHITE BLOOD CELL COUNT,WBC 16.9 K/uL (3.2-11.0)
[2023-08-07 19:42] LABS: APPEARANCE,URINE SLIGHTLY CLOUDY (CLEAR); BILIRUBIN,URINE NEGATIVE (NEGATIVE); COLOR,URINE YELLOW (YELLOW); GLUCOSE,URINE NEGATIVE (NEGATIVE); KETONES,URINE 15 mg/dL (NEGATIVE); LEUKOCYTE ESTERASE,URINE TRACE (NEGATIVE); NITRITE,URINE NEGATIVE (NEGATIVE); OCCULT BLOOD,URINE NEGATIVE (NEGATIVE); PH,URINE 6.5 (5.0-8.0); PROTEIN,URINE NEGATIVE (NEGATIVE); UROBILINOGEN,URINE 0.2 EU/dL (0.2-1.0)
[2023-08-07] MEDS: Ketorolac 15 MG/ML SDV IVPUSH ONE (19:43)
[2023-08-07] MEDS: Morphine 10 MG/ML Syringe IVPUSH ONE ×3 (19:44→23:49)
[2023-08-07 19:52] LABS: AMORPHOUS SEDIMENT,URINE NOT SEEN; BACTERIA,URINE FEW; EPITHELIAL CELLS,URINE MANY; MUCUS,URINE NOT SEEN; RBC,URINE 0-5 (0-5)
[2023-08-07 19:55] LABS: PROTHROMBIN TIME 10.5 sec (9.2-10.6)
[2023-08-07 20:02] LABS: A/G RATIO 1.2 (1.2-2.2); ALANINE AMINOTRANSFERASE,ALT 20 U/L (12-78); ALBUMIN 4.3 g/dL (3.4-5.0); ALKALINE PHOSPHATASE 100 U/L (46-116); AMYLASE 18 U/L (25-115); ANION GAP 15.8 mmol/L (5.0-14.0); ASPARTATE AMNIOTRANSFERASE,AST 23 U/L (15-37); BILIRUBIN TOTAL 0.6 mg/dL (0.2-1.0); BLOOD UREA NITROGEN,BUN 11 mg/dL (7-18); C-REACTIVE PROTEIN 1.28 mg/dL (<0.50); CALCIUM 8.8 mg/dL (8.5-10.1); CARBON DIOXIDE,CO2 26 mmol/L (21-32); CHLORIDE,CL 100 mmol/L (100-108); CREATININE 0.7 mg/dL (0.6-1.0); EST CRCL DRUG DOSING (CG) 106.69 mL/min; ESTIMATED GFR 111 mL/min (>60); GLUCOSE RANDOM 87 mg/dL (74-106); POTASSIUM,K 3.8 mmol/L (3.6-5.2); PROTEIN TOTAL,TP 7.8 g/dL (6.4-8.2); SODIUM,NA 138 mmol/L (140-148)
[2023-08-07] MEDS: Iopamidol 612 MG/ML 100 ML Bottle IV SCH (20:29)
[2023-08-07] MEDS: Sodium Chloride 0.9% 50 ML IV SCH (20:29)
[2023-08-07 23:59] VITALS: BP 119/77; PULSE 68
== END 2023-08-08 00:42 | disposition home or self-care (01) ==
LOC: JP.ED 18:33
DX: N83.201 Unspecified ovarian cyst, right side (principal); F17.210 Nicotine dependence, cigarettes, uncomplicated; Z79.899 Other long term (current) drug therapy; Z86.19 Personal history of other infectious and parasitic diseases; Z86.16 Personal history of COVID-19
CPT/HCPCS: 36415; 74177; 76830; 76856; 80053; 81001; 81025; 82150; 83605; 83690; 85025; 85610; 86140; 93976; 96374; 96375; 96376; 99284-25; J1885; J2270; J3490; Q9967

== ENCOUNTER 2023-08-12 11:42 | Emergency (ER) | payer MEDICAID ==
[2023-08-12] MEDS ORDERED: Naloxone 0.4 MG/ML SDV IVPUSH PRN ×2 (12:40→15:13)
[2023-08-12] MEDS ORDERED: Sodium Chloride 0.9% 1,000 ML IV SCH (12:45)
[2023-08-12 12:49] LABS: BASOPHILS ABSOLUTE AUTO 0.04 K/uL (0.00-0.10); BASOPHILS PERCENT AUTO 0.3 % (0.1-1.3); EOSINOPHILS ABSOLUTE AUTO 0.13 K/uL (0.00-0.40); EOSINOPHILS PERCENT AUTO 1.1 % (0.0-5.4); HEMATOCRIT 35.2 % (34.3-46.0); HEMOGLOBIN 11.6 g/dL (11.2-15.5); IMMATURE GRAN ABSOLUTE AUTO 0.06 K/uL (0.00-0.23); IMMATURE GRAN PERCENT AUTO 0.5 % (0.0-0.7); LYMPHOCYTES ABSOLUTE AUTO 2.43 K/uL (0.8-3.3); LYMPHOCYTES PERCENT AUTO 20.1 % (11.4-47.7); MEAN CORPUSCULAR HEMOGLOBIN 28.5 pg (31.6-35.5); MEAN CORPUSCULAR VOLUME 86.5 fL (81.4-99.0); MONOCYTES ABSOLUTE AUTO 0.57 K/uL (0.20-0.90); MONOCYTES PERCENT AUTO 4.7 % (3.3-12.6); NEUTROPHILS ABSOLUTE AUTO 8.87 K/uL (1.0-7.6); NEUTROPHILS PERCENT AUTO 73.3 % (40.0-78.1); PLATELET COUNT,PLT 247 K/uL (130-375); RED BLOOD CELL COUNT 4.07 M/uL (3.77-5.24); WHITE BLOOD CELL COUNT,WBC 12.1 K/uL (3.2-11.0)
[2023-08-12] MEDS: Sodium Chloride 0.9% 1,000 ML IV SCH (12:58)
[2023-08-12] MEDS: Ondansetron 4 MG/2 ML SDV IVPUSH ONE (12:59)
[2023-08-12] MEDS: HYDROmorphone 0.5 MG/0.5 ML Syringe IVPUSH ONE (13:01)
[2023-08-12 13:07] LABS: APPEARANCE,URINE CLEAR (CLEAR); BILIRUBIN,URINE NEGATIVE (NEGATIVE); COLOR,URINE YELLOW (YELLOW); GLUCOSE,URINE NEGATIVE (NEGATIVE); KETONES,URINE NEGATIVE (NEGATIVE); LEUKOCYTE ESTERASE,URINE NEGATIVE (NEGATIVE); NITRITE,URINE NEGATIVE (NEGATIVE); OCCULT BLOOD,URINE LARGE (NEGATIVE); PROTEIN,URINE NEGATIVE (NEGATIVE); UROBILINOGEN,URINE 0.2 EU/dL (0.2-1.0)
[2023-08-12 13:07] LABS: PROTHROMBIN TIME 10.2 sec (9.2-10.6)
[2023-08-12 13:15] LABS: AMORPHOUS SEDIMENT,URINE NOT SEEN; BACTERIA,URINE NOT SEEN; EPITHELIAL CELLS,URINE FEW; MUCUS,URINE NOT SEEN; WBC,URINE 0-5 (0-5)
[2023-08-12 13:23] LABS: A/G RATIO 1.2 (1.2-2.2); ALANINE AMINOTRANSFERASE,ALT 19 U/L (12-78); ALBUMIN 3.4 g/dL (3.4-5.0); ALKALINE PHOSPHATASE 94 U/L (46-116); ANION GAP 9.7 mmol/L (5.0-14.0); ASPARTATE AMNIOTRANSFERASE,AST 14 U/L (15-37); BILIRUBIN TOTAL 0.2 mg/dL (0.2-1.0); BLOOD UREA NITROGEN,BUN 11 mg/dL (7-18); CALCIUM 9.1 mg/dL (8.5-10.1); CARBON DIOXIDE,CO2 27 mmol/L (21-32); CHLORIDE,CL 105 mmol/L (100-108); CREATININE 0.8 mg/dL (0.6-1.0); EST CRCL DRUG DOSING (CG) 93.35 mL/min; ESTIMATED GFR 95 mL/min (>60); GLUCOSE RANDOM 100 mg/dL (74-106); POTASSIUM,K 3.7 mmol/L (3.6-5.2); PROTEIN TOTAL,TP 6.2 g/dL (6.4-8.2); SODIUM,NA 142 mmol/L (140-148)
[2023-08-12 14:58] VITALS: BP 105/61; PULSE 70
[2023-08-12] MEDS: HYDROmorphone 1 MG/ML Syringe IVPUSH ONE (15:16)
== END 2023-08-12 16:33 | disposition home or self-care (01) ==
LOC: JP.ED 11:42
DX: N83.201 Unspecified ovarian cyst, right side (principal); Z79.899 Other long term (current) drug therapy; Z86.16 Personal history of COVID-19
CPT/HCPCS: 36415; 76830; 76856; 80053; 81001; 81025; 83605; 85025; 85610; 93005; 93976; 96374; 96375; 96376; 99284; J1170; J2405; J7030

== ENCOUNTER 2023-10-08 07:27 | Emergency (ER) | payer MEDICAID ==
[2023-10-08] MEDS: Ondansetron 4 MG/2 ML SDV IVPUSH ONE (07:55)
[2023-10-08] MEDS: Piperacillin/Tazobactam 3.375 GM in Sodium Chloride 0.9% 50 ML IV STA (07:57)
[2023-10-08] MEDS: fentaNYL 50 MCG/ML SDV IVPUSH ONE ×5 (07:57→13:06)
[2023-10-08 08:01] LABS: PROTHROMBIN TIME 10.4 sec (9.2-10.6); PTT,PARTIAL THROMBOPLSTIN TIME 23.9 sec (21.8-27.3)
[2023-10-08] MEDS: Sodium Chloride 0.9% 1,000 ML IV ONE ×4 (08:05→09:48)
[2023-10-08 08:06] LABS: BASE EXCESS VENOUS -0.3 mm/L; BASOPHILS ABSOLUTE AUTO 0.11 K/uL (0.00-0.10); BICARBONATE,VENOUS 25.6 mmol/L; CARBOXYHEMOGLOBIN 4.8 % (0.0-1.6); EOSINOPHILS ABSOLUTE AUTO 0.35 K/uL (0.00-0.40); HEMATOCRIT 32.2 % (34.3-46.0); HEMOGLOBIN 10.4 g/dL (11.2-15.5); IMMATURE GRAN ABSOLUTE AUTO 0.04 K/uL (0.00-0.23); IMMATURE GRAN PERCENT AUTO 0.3 % (0.0-0.7); LYMPHOCYTES ABSOLUTE AUTO 4.94 K/uL (0.8-3.3); LYMPHOCYTES PERCENT AUTO 42.9 % (11.4-47.7); MEAN CORPUSCULAR HEMOGLOBIN 27.8 pg (31.6-35.5); MEAN CORPUSCULAR HGB CONC 32.3 g/dL (31.6-35.5); MEAN CORPUSCULAR VOLUME 86.1 fL (81.4-99.0); METHEMOGLOBIN 1.3 %; MONOCYTES ABSOLUTE AUTO 0.61 K/uL (0.20-0.90); MONOCYTES PERCENT AUTO 5.3 % (3.3-12.6); NEUTROPHILS ABSOLUTE AUTO 5.47 K/uL (1.0-7.6); NEUTROPHILS PERCENT AUTO 47.5 % (40.0-78.1); O2 SATURATION VENOUS 47.4; OXYHEMOGLOBIN 44.5 %; PCO2 VENOUS 50.4 mm/Hg; PH,VENOUS 7.326 (7.350-7.450); PLATELET COUNT,PLT 336 K/uL (130-375); RED BLOOD CELL COUNT 3.74 M/uL (3.77-5.24); TOTAL HEMOGLOBIN 10.9 g/dL (12.0-16.0); WHITE BLOOD CELL COUNT,WBC 11.5 K/uL (3.2-11.0)
[2023-10-08 08:08] LABS: A/G RATIO 1.1 (1.2-2.2); ALANINE AMINOTRANSFERASE,ALT 23 U/L (12-78); ALBUMIN 3.2 g/dL (3.4-5.0); ALKALINE PHOSPHATASE 109 U/L (46-116); ASPARTATE AMNIOTRANSFERASE,AST 20 U/L (15-37); BILIRUBIN TOTAL 0.2 mg/dL (0.2-1.0); BLOOD UREA NITROGEN,BUN 16 mg/dL (7-18); CALCIUM 8.8 mg/dL (8.5-10.1); CARBON DIOXIDE,CO2 26 mmol/L (21-32); CHLORIDE,CL 103 mmol/L (100-108); CREATININE 1.1 mg/dL (0.6-1.0); EST CRCL DRUG DOSING (CG) 67.89 mL/min; ESTIMATED GFR 65 mL/min (>60); GLUCOSE RANDOM 180 mg/dL (74-106); POTASSIUM,K 3.7 mmol/L (3.6-5.2); SODIUM,NA 140 mmol/L (140-148); TROPONIN I HIGH SENSITIVITY 5.7 pg/mL (<=60.3)
[2023-10-08 08:10] LABS: LACTIC ACID 3.3 mmol/L (0.4-2.0)
[2023-10-08] MEDS: Sodium Chloride 0.9% 10 ML Syringe FLUSH ONE (08:43)
[2023-10-08] MEDS: Sodium Chloride 0.9% 80 ML IV SCH (08:43)
[2023-10-08] MEDS: Iopamidol 612 MG/ML 100 ML Bottle IV SCH (08:43)
[2023-10-08 10:21] LABS: APPEARANCE,URINE CLEAR (CLEAR); BILIRUBIN,URINE NEGATIVE (NEGATIVE); COLOR,URINE YELLOW (YELLOW); GLUCOSE,URINE NEGATIVE (NEGATIVE); KETONES,URINE NEGATIVE (NEGATIVE); LEUKOCYTE ESTERASE,URINE NEGATIVE (NEGATIVE); NITRITE,URINE NEGATIVE (NEGATIVE); OCCULT BLOOD,URINE NEGATIVE (NEGATIVE); PROTEIN,URINE NEGATIVE (NEGATIVE); UROBILINOGEN,URINE 0.2 EU/dL (0.2-1.0)
[2023-10-08 10:29] LABS: AMORPHOUS SEDIMENT,URINE RARE; BACTERIA,URINE NOT SEEN; EPITHELIAL CELLS,URINE RARE; MUCUS,URINE NOT SEEN; RBC,URINE 0-5 (0-5); WBC,URINE NOT SEEN (0-5)
[2023-10-08] MEDS: LORazepam 2 MG/ML SDV IVPUSH ONE (11:05)
[2023-10-08 11:11] LABS: BASOPHILS ABSOLUTE AUTO 0.04 K/uL (0.00-0.10); BASOPHILS PERCENT AUTO 0.4 % (0.1-1.3); EOSINOPHILS ABSOLUTE AUTO 0.06 K/uL (0.00-0.40); EOSINOPHILS PERCENT AUTO 0.5 % (0.0-5.4); HEMATOCRIT 23.3 % (34.3-46.0); HEMOGLOBIN 7.7 g/dL (11.2-15.5); IMMATURE GRAN ABSOLUTE AUTO 0.08 K/uL (0.00-0.23); IMMATURE GRAN PERCENT AUTO 0.7 % (0.0-0.7); LYMPHOCYTES ABSOLUTE AUTO 1.45 K/uL (0.8-3.3); LYMPHOCYTES PERCENT AUTO 12.7 % (11.4-47.7); MEAN CORPUSCULAR HEMOGLOBIN 28.4 pg (31.6-35.5); MONOCYTES ABSOLUTE AUTO 0.39 K/uL (0.20-0.90); MONOCYTES PERCENT AUTO 3.4 % (3.3-12.6); NEUTROPHILS ABSOLUTE AUTO 9.37 K/uL (1.0-7.6); NEUTROPHILS PERCENT AUTO 82.3 % (40.0-78.1); PLATELET COUNT,PLT 185 K/uL (130-375); RED BLOOD CELL COUNT 2.71 M/uL (3.77-5.24); WHITE BLOOD CELL COUNT,WBC 11.4 K/uL (3.2-11.0)
[2023-10-08] MEDS ORDERED: Tranexamic Acid 600 MG in Sodium Chloride 0.9% 50 ML IV ONE (11:54)
[2023-10-08 11:58] LABS: BASOPHILS ABSOLUTE AUTO 0.04 K/uL (0.00-0.10); BASOPHILS PERCENT AUTO 0.4 % (0.1-1.3); EOSINOPHILS ABSOLUTE AUTO 0.06 K/uL (0.00-0.40); EOSINOPHILS PERCENT AUTO 0.6 % (0.0-5.4); HEMATOCRIT 23.3 % (34.3-46.0); HEMOGLOBIN 7.5 g/dL (11.2-15.5); IMMATURE GRAN ABSOLUTE AUTO 0.06 K/uL (0.00-0.23); IMMATURE GRAN PERCENT AUTO 0.6 % (0.0-0.7); LYMPHOCYTES ABSOLUTE AUTO 1.37 K/uL (0.8-3.3); LYMPHOCYTES PERCENT AUTO 13.3 % (11.4-47.7); MEAN CORPUSCULAR HEMOGLOBIN 27.8 pg (31.6-35.5); MEAN CORPUSCULAR HGB CONC 32.2 g/dL (31.6-35.5); MEAN CORPUSCULAR VOLUME 86.3 fL (81.4-99.0); MONOCYTES ABSOLUTE AUTO 0.35 K/uL (0.20-0.90); MONOCYTES PERCENT AUTO 3.4 % (3.3-12.6); NEUTROPHILS ABSOLUTE AUTO 8.43 K/uL (1.0-7.6); NEUTROPHILS PERCENT AUTO 81.7 % (40.0-78.1); PLATELET COUNT,PLT 181 K/uL (130-375)
[2023-10-08 11:59] LABS: WHITE BLOOD CELL COUNT,WBC 10.3 K/uL (3.2-11.0)
[2023-10-08] MEDS: Tranexamic Acid 800 MG in Sodium Chloride 0.9% 50 ML IV ONE (13:04)
[2023-10-08] MEDS: Morphine 4 MG/ML Syringe IVPUSH ONE (14:03)
[2023-10-08 14:33] VITALS: BP 87/58; PULSE 67
== END 2023-10-08 14:26 ==
LOC: JP.ED 07:27
DX: R57.9 Shock, unspecified (principal); R58 Hemorrhage, not elsewhere classified; F17.210 Nicotine dependence, cigarettes, uncomplicated; Z79.899 Other long term (current) drug therapy
CPT/HCPCS: 36415; 36430; 71045; 74177; 80053; 81001; 82803; 83605; 84145; 84484; 85025; 85610; 85730; 86140; 86850; 86900; 86901; 86920; 86922; 87040; 93005; 96361; 96365; 96367; 96368; 96375; 96376; 99285; J1642; J2060; J2270; J2405; J2543; J3010; J3370; J3490; J7030; J7050; P9016; Q9967; 93010; C1751; C1894